=== PATIENT | female | born 1995 | race Two or more races ===

== ENCOUNTER 2024-09-12 08:45 | Inpatient (IN) | payer MEDICAID, OTHER ==
[~2024-09-12] VITALS: Ht 157.5 cm; Wt 49.5 kg
[~2024-09-12 08:45] MED LIST: FAMO20TA10 PO; ZOFR4T PO
--- NOTE | 2024-09-12 09:05 | ED.PDOC ---
GI ASSESSMENT HPI Comments A 29 year old female presents to the ED with a chief complaint of abdominal pain onset 1 week. Patient states she was seen in the ED about 1 week ago, prescribed Famotidine but did not notice an improvement. She has not been able to eat due to symptoms. Denies nausea, vomiting, diarrhea, constipation, chest pain, shortness of breath. No other symptoms or modifying factors present at this time. Chief Complaint: Abdominal Pain Time Seen by MD: 08:51 Primary Care Provider: OUT OF AREA Reviewed Notes: Medications, Allergies Allergies: Coded Allergies: NO KNOWN ALLERGIES (Unverified , 09/03/24) Home Meds Active Scripts Famotidine (PEPCID TABLET) 20 Mg Tb, 1 TAB PO BID PRN for 10 Days, #40 TAB 5 Refills Prov:GABE ASTUDILLO MD 09/03/24 Ondansetron Odt 4MG Tab (ZOFRAN PO) 4 Mg Tb, 4 MG PO Q6HPRN PRN for 10 Days, #40 TAB 0 Refills ODT TAB-DISSOLVE IN MOUTH, THEN SWALLOW Prov:GABE ASTUDILLO MD 09/03/24 Information Source: Patient Mode of Arrival: Ambulatory Timing: Weeks Duration: Since onset Prehospital treatment: None Severity: Moderate Recent Hx of: None Pain Location: Epigastric Associated sign and symptoms: Abdominal Pain Past Medical History PAST MEDICAL HISTORY: Denies Surgical History: Denies all surgeries DELINEATOR History: No Pertinent DELINEATOR History Family History Family History: Reviewed,noncontributory to illness, No family hx of Cancer, No family hx of DM, No family hx of Heart lex, No family hx of HTN, No family hx ofKidney lex, No family hx of Liver lex, No family hx of Lung lex, No family hx of Stroke Social History Smoker: Non-Smoker Alcohol: Denies ETOH Use Drugs: Denies Drug Use Lives In: Home Constitutional: denies: chills, diaphoresis, fatigue, fever, malaise, sweats, weakness, others EENTM: denies: blurred vision, double vision, ear bleeding, ear discharge, ear drainage, ear pain, ear ringing, eye pain, eye redness, hearing loss, mouth pain, mouth swelling, nasal discharge, nose bleeding, nose congestion, nose pain, photophobia, tearing, throat pain, throat swelling, voice changes, others Respiratory: denies: cough, hemoptysis, orthopnea, SOB at rest, shortness of breath, SOB with excertion, stridor, wheezing, others Cardiovascular: denies: chest pain, dizzy spells, diaphoresis, Dyspnea on exertion, edema, irregular heart beat, left arm pain, lightheadedness, palpitations, PND, syncope, others Gastrointestinal: reports: abdominal pain; denies: abdomen distended, blood streaked bowels, constipated, diarrhea, dysphagia, difficulty swallowing, hematemesis, melena, nausea, poor appetite, poor fluid intake, rectal bleeding, rectal pain, vomiting, others Genitourinary: denies: abnormal vagina bleeding, burning, dyspareunia, dysuria, flank pain, frequency, hematuria, incontinence, pain, , vagina discharge, urgency, others Neurological: denies: dizziness, fainting, headache, left sided numbness, left sided weakness, numbness, paresthesia, pre-existing deficit, right sided numbness, right sided weakness, seizure, speech problems, tingling, tremors, weakness, others Musculoskeletal: denies: back pain, gout, joint pain, joint swelling, muscle pain, muscle stiffness, neck pain, others Integumetry: denies: bruises, change in color, change in hair/nails, dryness, laceration, lesions, lumps, rash, wounds, others Allergic/Immunocompromised: denies: Difficulty Healing, Frequent Infections, Hives, Itching, others Hematologic/Lymphatic: denies: anemia, blood clots, easy bleeding, easy bru ising, swollen glands, others Endocrine: denies: excessive hunger, excessive sweating, excessive thirst, e xcessive urination, flushing, intolerance to cold, intolerance to heat, unexplained weight gain, unexplained weight loss, others Psychiatric: denies: anxiety, bipolar disorder, depression, hopeless, panic disorder, schizophrenia, sleepless, suicidal, others All Other Systems: Reviewed and Negative Physical Exam General Appearance: No Apparent Distress, Normal HEENT: Normal ENT Inspection, Pharynx Normal, TMs Normal Neck: Full Range of Motion, Non-Tender, Normal, Normal Inspection Respiratory: Chest Non-Tender, Lungs Clear, No Accessory Muscle Use, No Respiratory Distress, Normal Breath Sounds Cardiovascular: No Edema, No JVD, No Murmur, No Gallop, Normal Peripheral Pulses, Regular Rate/Rhythm Breast Exam: Deferred Gastrointestinal: Epigastric, No Organomegaly, No Pulsatile Mass, Normal Bowel Sounds, Tenderness (epigastric ) Genitalia: Deferred Pelvic: Deferred Rectal: Deferred Extremities: No calf tenderness, Normal capillary refill, Normal inspection, Normal range of motion, Non-tender, No pedal edema Musculoskeletal : Apperance: Normal Neurologic: Alert, veneer stapler II-XII nml as Tested, No Motor Deficits, Normal Affect, Normal Mood, No Sensory Deficits Cerebellar Function: Normal Reflexes: Normal Skin: Dry, Normal Color, Warm Lymphatic: No Adenopathy Was a procedure done? Was a procedure done?: No GI differential Dx Differential Diagnosis: Cholangitis, Cholecystitis, Gastritis/PUD, Gastroenteritis, UTI, Urolithiasis, Dehydration X-Ray, Labs, Meds, VS Vital Signs Date Time Temp Pulse Resp B/P (MAP) Pulse Ox O2 Delivery O2 Flow Rate FiO2 09/12/24 08:55 97.8 86 18 125/95 (105) 98 Lab Test 09/12/24 09:37 09/12/24 08:54 Range/Units White Blood Count 6.5 4.4-10.8 10^3/uL Red Blood Count 4.49 4.0-5.20 10^6/uL Hemoglobin 13.5 12.2-16.2 g/dL Hematocrit 39.9 36.0-46.0 % Mean Corpuscular Volume 88.7 80.0-100.0 fL Mean Corpuscular Hemoglobin 30.0 28.0-32.0 pg Mean Corpuscular Hemoglobin Concent 33.8 32.0-36.0 g/dL Red Cell Distribution Width 12.8 11.8-14.3 % Platelet Count 202 140-450 10^3/uL Mean Platelet Volume 7.8 6.9-10.8 fL Neutrophils (%) (Auto) 73.2 37.0-80.0 % Lymphocytes (%) (Auto) 19.6 10.0-50.0 % Monocytes (%) (Auto) 6.3 0.0-12.0 % Eosinophils (%) (Auto) 0.2 0.0-7.0 % Basophils (%) (Auto) 0.7 0.0-2.0 % Neutrophils # (Auto) 4.7 1.6-8.6 10 ^3/uL Lymphocytes # (Auto) 1.3 0.4-5.4 10 ^3/uL Monocytes # (Auto) 0.4 0-1.3 10 ^3/uL Eosinophils # (Auto) 0 0-0.8 10 ^3/uL Basophils # (Auto) 0 0-0.2 10 ^3/uL Nucleated Red Blood Cells 0.1 % Sodium Level 139 136-145 mmol/L Potassium Level 3.5 3.5-5.1 mmol/L Chloride Level 104 98-107 mmol/L Carbon Dioxide Level 24 20-31 mmol/L Anion Gap 11 5-15 Blood Urea Nitrogen 9 9-23 mg/dL Creatinine 0.62 0.550-1.02 mg/dL Glomerular Filtration Rate Calc 122 >90 mL/min BUN/Creatinine Ratio 14.5 10.0-20.0 Serum Glucose 92 74-106 mg/dL Calcium Level 9.6 8.7-10.4 mg/dL Total Bilirubin 0.6 0.2-1.0 mg/dL Aspartate Amino Transferase (AST) 13 13-40 U/L Alanine Aminotransferase (ALT) 18 7-40 U/L Alkaline Phosphatase 58 46-116 U/L Total Protein 7.2 5.7-8.2 g/dL Albumin 4.6 3.2-4.8 g/dL Lipase 56 H 12-53 U/L Urine Color Colorless Yellow Urine Clarity Clear Clear Urine pH 7.5 5.0-9.0 Urine Specific [place] 1.006 1.001-1.035 Urine Protein Negative Negative Urine Ketones Negative Negative Urine Blood Negative Negative /uL Urine Nitrite Negative Negative Urine Bilirubin Negative Negative Urine Urobilinogen Normal Negative mg/dL Urine Leukocyte Esterase Negative Negative /uL Urine RBC <1 0 - 4 /hpf Urine WBC <1 0 - 5 /hpf Urine Squamous Epithelial Cells Mod <5 /hpf Urine Bacteria None Seen /hpf Urine Glucose Normal Normal mg/dL Urine Test Negative Negative [facility] [id number] [place] [address] Ph: [phone] DIAGNOSTIC IMAGING Diagnostic Imaging Report : [id number] Signed PATIENT: CHALO GUTIÉRREZ ACCT: [id number] UNIT: [id number] : 1995 LOC: ER ROOM / BED: / AGE / SEX: 29 / F ADM STATUS: REG ER SERVICE 0900 ORDERING PHYSICIAN: KERWIN BARRON MD PROCEDURE(s): GBUS - GALLBLADDER REASON: ruq pain ORDER NUMBER(s): [id number], ACCESSION NUMBER(s): [id number] US GALLBLADDER HISTORY: ruq pain COMPARISON: None TECHNIQUE: Transverse and longitudinal grayscale and color sonographic images were obtained of the abdomen. FINDINGS: Liver: - Size: 14.2 cm - Echogenicity: Normal - Surface Contour: Smooth - Liver Lesion(s): None - Portal Vein: Hepatofugal. - Bile Ducts: Normal. The common bile duct measures 4.4 mm. Gallbladder: Gallstone at the neck of gallbladder with wall thickening and pericholecystic fluid. The sonographic Fowler sign is positive. Pancreas: Portions not obscured by bowel gas are normal. Kidneys: - Right kidney size: 9.7 cm. There is no hydronephrosis, renal calculi, or mass lesion. Aorta and Inferior Vena Cava: The visualized portions of the abdominal aorta and intrahepatic vena cava are normal. Other: None IMPRESSION: Cholelithiasis with gallstone at the neck of gallbladder with wall thickening and pericholecystic fluid can be seen with cholecystitis. ATED BY: SANDER CRAMER MD DICTATED DATE/TIME: 09/12/24945 SIGNED BY: SANDER CRAMER MD SIGNED DATE/TIME: 09/12/24945 CC: Time of 1ST Reevaluation: 08:21 Reevaluation 1ST: Unchanged Patient Education/Counseling: Diagnosis, Treatment, Prognosis Family Education/Counseling: No Family Present Departure 1 Departure Time of Disposition: 10:51 (Patient presented with abdominal pain that was concerning for possible appendicits, gastritis, cholecystitis, colitis, gastroenteritis, sbo, or orther possible surgical emergency. Data: 1. I ordered and reviewed the result of at least 3 labs including a CBC, BMP, and Urinalysis. 2. I independently interpreted the following tests: Right upper quadrant ultrasound is concerning for acute cholecystitis.Risk:This patient has a high risk of morbidity due to further diagnostic testing or treatment and may suffer from an acute abdominal process disorder. Workup reveals concern for acute ch olecystitis and patient should be admitted for further workup. and possible expert consultation. ) Impression: Primary Impression: Acute cholecystitis Additional Impressions: Right upper quadrant pain Projectile vomiting with nausea Disposition: ADMITTED INPATIENT Admit to: Med Surg Condition: Serious Critical Care Note Critical Care Time?: Yes Critical care comment: Intractable abdominal pain Authorized and Performed by: Kerwin Barron MD Total critical care time: Approximately 39 minutes Due to a high probability of clinically significant, life threatening deterioration, the patient required my highest level of preparedness to intervene emergently and I personally spent this critical care time directly and personally managing the patient. This critical care time included obtaining a history; examining the patient; pulse oximetry; ordering and review of studies; arranging urgent treatment with development of a management plan; evaluation of patient's response to treatment; frequent reassessment; and, discussions with other providers. This critical care time was performed to assess and manage the high probability of imminent, life-threatening deterioration that could result in multi-organ failure. It was exclusive of separately billable procedures and treating other patients and teaching time. Please see my other sections and the rest of the note for further information on patient assessment and treatment. Stability Stability form required: No I personally scribed for KERWIN BARRON MD ([email or web address]) on 09/12/24 at 09:05. E lectronically submitted by Abbey Oreilly ([email or web address]). I personally scribed for KERWIN BARRON MD ([email or web address]) on 09/12/24 at 09:59. Elec tronically submitted by Abbey Oreilly ([email or web address]). KERWIN BARRON MD Sep 12, 2024 09:05
[2024-09-12 09:44] LABS: Basophils # (auto) 0 10 ^3/uL (0-0.2); Basophils % (auto) 0.7 % (0.0-2.0); Eosinophils # (auto) 0 10 ^3/uL (0-0.8); Eosinophils % (auto) 0.2 % (0.0-7.0); Hematocrit 39.9 % (36.0-46.0); Hemoglobin 13.5 g/dL (12.2-16.2); Lymphocytes # (auto) 1.3 10 ^3/uL (0.4-5.4); Lymphocytes % (auto) 19.6 % (10.0-50.0); Mean Corpuscular Hgb Conc. 33.8 g/dL (32.0-36.0); Mean Corpuscular Volume 88.7 fL (80.0-100.0); Monocytes # (auto) 0.4 10 ^3/uL (0-1.3); Monocytes % (auto) 6.3 % (0.0-12.0); Neutrophils # (auto) 4.7 10 ^3/uL (1.6-8.6); Neutrophils % (auto) 73.2 % (37.0-80.0); Nucleated Red Blood Cells % 0.1 %; Platelet Count (auto) 202 10^3/uL (140-450); Red Blood Cells 4.49 10^6/uL (4.0-5.20); Red Cell Distribution Width 12.8 % (11.8-14.3); White Blood Cell 6.5 10^3/uL (4.4-10.8)
--- NOTE | 2024-09-12 09:48 | DVH ---
US GALLBLADDER HISTORY: ruq pain COMPARISON: None TECHNIQUE: Transverse and longitudinal grayscale and color sonographic images were obtained of the ab domen. FINDINGS: Liver: - Size: 14.2 cm - Echogenicity: Normal - Surface Contour: Smooth - Liver Lesion(s): None - Portal Vein: Hepatofugal. - Bile Ducts: Normal. The common bile duct measures 4.4 mm. Gallbladder: Gallstone at the neck of gallbladder with wall thickening and pericholecystic fluid. The sonographic Fowler sign is positive. Pancreas: Portions not obscured by bowel gas are normal. Kidneys: - Right kidney size: 9.7 cm. There is no hydronephrosis, renal calculi, or mass lesion. Aorta and Inferior Vena Cava: The visualized portions of the abdominal aorta and intrahepatic vena ca va are normal. Other: None IMPRESSION: Cholelithiasis with gallstone at the neck of gallbladder with wall thickening and pericholecystic flu id can be seen with cholecystitis.
[2024-09-12 10:00] LABS: Alanine Aminotransferase 18 U/L (7-40); Albumin 4.6 g/dL (3.2-4.8); Alkaline Phosphatase 58 U/L (46-116); Anion Gap 11 (5-15); BUN/Creatinine Ratio 14.5 (10.0-20.0); Bilirubin, Total 0.6 mg/dL (0.2-1.0); Calcium 9.6 mg/dL (8.7-10.4); Carbon Dioxide 24 mmol/L (20-31); Chloride 104 mmol/L (98-107); Glucose 92 mg/dL (74-106); Sodium 139 mmol/L (136-145); Total Protein 7.2 g/dL (5.7-8.2)
[2024-09-12 10:03] LABS: Aspartate Aminotransferase 13 U/L (13-40); Blood Urea Nitrogen 9 mg/dL (9-23); Lipase 56 U/L (12-53); Potassium 3.5 mmol/L (3.5-5.1)
[2024-09-12 10:38] LABS: Urine Blood Negative /uL (Negative); Urine Clarity Clear (Clear); Urine Color Colorless (Yellow); Urine Protein, UAD Negative (Negative); Urine Specific Gravity 1.006 (1.001-1.035); Urine Urobilinogen Normal (Negative); Urine WBC <1 /hpf (0 - 5); Urine pH 7.5 (5.0-9.0)
[2024-09-12] MEDS: SODIUM CHLORIDE 0.9% 1,000 ML IV ONE (11:13)
[2024-09-12] MEDS: MORPHINE SULFATE 4 MG/ML SYR/VIAL IV ONE (11:26)
[2024-09-12] MEDS: ONDANSETRON HCL 4 MG/2 ML VIAL IV ONE (11:27)
[2024-09-12] MEDS: metroNIDAZOLE 500MG/100ML 100 ML IV ONE (11:27)
[2024-09-12] MEDS: ceFAZolin 2 GM/D5W50ml 50 ML IV ONE (12:49)
[2024-09-12] MEDS ORDERED: MORPHINE SULFATE INJ 2 MG/ml SYRG IV PRN (13:00)
[2024-09-12] MEDS ORDERED: TEMAZEPAM 15 MG CAP PO PRN (13:00)
[2024-09-12] MEDS ORDERED: ACETAMINOPHEN 325 MG TAB PO PRN (13:00)
--- NOTE | 2024-09-12 13:20 | DVHHP2 ---
History of Present Illness Reason for Visit: Abdominal pain History of Present Illness 29-year-old female comes into the ED for evaluation of acute abdominal pain patient with a no stated other past medical history no other stated past surgical history has been having abdominal pain for the past week stated that she has tried several [id number] medications have not been helpful and does note that eating sometimes is affected symptoms patient was evaluated in the ED had a right upper quadrant ultrasound which did show that the patient had gallstones and acute cholecystitis surgery was evaluated and required for consultation in the ED patient recommended for admission further evaluation and likely surgical treatment Review of Systems Constitutional: Yes: Fever, Weakness; No: Chills, Sweats, Malaise, Other Eyes: No: Pain, Vision change, Conjunctivae inflammation, Eyelid inflammation, Other, Redness ENT: No: Ear pain, Ear discharge, Nose pain, Nose discharge, Nose congestion, Mouth pain, Mouth swelling, Throat pain, Throat swelling, Other Respiratory: No: Cough, Dry, Shortness of breath, SOB with excertion, Wheezing, Hemoptysis, Pleuritic Pain, Sputum, Wheezing, Other Cardiovascular: No: Chest Pain, Palpitations, Orthopnea, Paroxysmal Noc. Dyspnea, Edema, Lt Headedness, Other Gastrointestinal: Abdominal Pain; No: Nausea, Vomiting, Diarrhea, Constipation, Melena, Hematochezia, Other Genitourinary: No Dysuria, No Frequency, No Incontinence, No Hematuria, No Retention, No Other Musculoskeletal: No: other, neck pain, shoulder pain, arm pain, back pain, hand pain, leg pain, foot pain Skin: No: Rash, Lesions, Jaundice, Bruising, Other Neurological: No: Weakness, Numbness, Incoordination, Change in speech, Confusion, Seizures, Other Allergies: Coded Allergies: NO KNOWN ALLERGIES (Unverified , 09/03/24) Medications Current Medications Medications Dose Ordered Sig/Deshawn Route Start Time Stop Time Status Last Admin Dose Admin Ceftriaxone Sodium 50 ml @ 100 mls/hr DAILY IV 09/13/24 10:00 UNV Metronidazole 100 ml @ 100 mls/hr Q8HR IV 09/12/24 14:00 UNV Sodium Chloride 1,000 ml @ 60 mls/hr [id number] IV 09/12/24 13:00 UNV Lorazepam 0.5 mg Q6HP PRN PO 09/12/24 13:00 UNV Al Hydrox/Mg Hydrox/Simethicone 30 ml Q6HP PRN PO 09/12/24 13:00 UNV Docusate Sodium 100 mg BIDPRN PRN PO 09/12/24 13:00 UNV Acetaminophen 650 mg Q6HP PRN PO 09/12/24 13:00 UNV Temazepam 15 mg QHSP PRN PO 09/12/24 13:00 UNV Acetaminophen/ Hydrocodone Bitart 1 tab Q4HP PRN PO 09/12/24 13:00 UNV Ondansetron HCl 4 mg Q4HP PRN IV 09/12/24 13:00 UNV Morphine Sulfate 2 mg Q4HPRN PRN IV 09/12/24 13:00 UNV Morphine Sulfate 2 mg Q30M PRN IV 09/12/24 13:00 UNV Exam Vital Signs Vital Signs Date Time Temp Pulse Resp B/P (MAP) Pulse Ox O2 Delivery O2 Flow Rate FiO2 09/12/24 13:10 98.2 69 20 111/74 (86) 98 98.2 09/12/24 11:07 Room Air General Appearance: Alert, Oriented X3, moderate distress HEENT: Atraumatic, PERRLA Respiratory: Clear to auscultation, Normal air movement Cardiovascular: Regular rate, Normal S1, Normal S2 Abdominal: Normal bowel sounds, Soft, No tenderness Extremities: No clubbing, No cyanosis, No edema Skin: No rashes, No breakdown Neuro: Normal gait, Normal speech Psych/Mental Status: Mood NL Labs/Xrays Labs Test 09/12/24 09:37 09/12/24 08:54 Range/Units White Blood Count 6.5 4.4-10.8 10^3/uL Red Blood Count 4.49 4.0-5.20 10^6/uL Hemoglobin 13.5 12.2-16.2 g/dL Hematocrit 39.9 36.0-46.0 % Mean Corpuscular Volume 88.7 80.0-100.0 fL Mean Corpuscular Hemoglobin 30.0 28.0-32.0 pg Mean Corpuscular Hemoglobin Concent 33.8 32.0-36.0 g/dL Red Cell Distribution Width 12.8 11.8-14.3 % Platelet Count 202 140-450 10^3/uL Mean Platelet Volume 7.8 6.9-10.8 fL Neutrophils (%) (Auto) 73.2 37.0-80.0 % Lymphocytes (%) (Auto) 19.6 10.0-50.0 % Monocytes (%) (Auto) 6.3 0.0-12.0 % Eosinophils (%) (Auto) 0.2 0.0-7.0 % Basophils (%) (Auto) 0.7 0.0-2.0 % Neutrophils # (Auto) 4.7 1.6-8.6 10 ^3/uL Lymphocytes # (Auto) 1.3 0.4-5.4 10 ^3/uL Monocytes # (Auto) 0.4 0-1.3 10 ^3/uL Eosinophils # (Auto) 0 0-0.8 10 ^3/uL Basophils # (Auto) 0 0-0.2 10 ^3/uL Nucleated Red Blood Cells 0.1 % Sodium Level 139 136-145 mmol/L Potassium Level 3.5 3.5-5.1 mmol/L Chloride Level 104 98-107 mmol/L Carbon Dioxide Level 24 20-31 mmol/L Anion Gap 11 5-15 Blood Urea Nitrogen 9 9-23 mg/dL Creatinine 0.62 0.550-1.02 mg/dL Glomerular Filtration Rate Calc 122 >90 mL/min BUN/Creatinine Ratio 14.5 10.0-20.0 Serum Glucose 92 74-106 mg/dL Calcium Level 9.6 8.7-10.4 mg/dL Total Bilirubin 0.6 0.2-1.0 mg/dL Aspartate Amino Transferase (AST) 13 13-40 U/L Alanine Aminotransferase (ALT) 18 7-40 U/L Alkaline Phosphatase 58 46-116 U/L Total Protein 7.2 5.7-8.2 g/dL Albumin 4.6 3.2-4.8 g/dL Lipase 56 H 12-53 U/L Urine Color Colorless Yellow Urine Clarity Clear Clear Urine pH 7.5 5.0-9.0 Urine Specific [place] 1.006 1.001-1.035 Urine Protein Negative Negative Urine Ketones Negative Negative Urine Blood Negative Negative /uL Urine Nitrite Negative Negative Urine Bilirubin Negative Negative Urine Urobilinogen Normal Negative mg/dL Urine Leukocyte Esterase Negative Negative /uL Urine RBC <1 0 - 4 /hpf Urine WBC <1 0 - 5 /hpf Urine Squamous Epithelial Cells Mod <5 /hpf Urine Bacteria None Seen /hpf Urine Glucose Normal Normal mg/dL Urine Test Negative Negative Assessment/Plan Assessment/Plan Admit to [facility] Acute cholecystitis Ultrasound completed in the ED Patient's labs no acute abnormal findings For coverage and making sure that the patient does have signs of sepsis or rupture Patient was treated with antibiotics ceftriaxone daily Metronidazole t.i.d. IV hydration p.r.n. pain medication Plan discussed with: Patient My Orders Orders - BREANNE HILL MD Procedure Category Date Status Time Ceftriaxone 1gm/50ml PHA 09/13/24 Logged D5w (Rocephin) 10:00 Metronidazole PHA 09/12/24 Logged 500mg/100ml (Flagyl 14:00 Admit ADMIT 09/12/24 Transmitted 12:58 Code Status CODE 09/12/24 Transmitted 12:58 Vital Signs [facility] 09/12/24 In Process 12:58 Review Orders With [facility] 09/12/24 In Process Adm. 12:58 Npo (Nothing By DIET 09/12/24 Transmitted Mouth) Diet Lunch Sodium Chloride 0.9% PHA 09/12/24 Logged 13:00 Lorazepam Tablet PHA 09/12/24 Logged (Ativan Tablet) 13:00 Alum & Mag PHA 09/12/24 Logged Hydrox-Simethicone 13:00 Docusate Sodium PHA 09/12/24 Logged Capsule (Colace 13:00 Acetaminophen Tablet PHA 09/12/24 Logged (Tylenol Tablet) 13:00 Temazepam (Restoril) PHA 09/12/24 Logged 13:00 Notify Of Changes [facility] 09/12/24 In Process From Base 12:58 Advance Directive [facility] 09/12/24 In Process 12:58 Basic Metabolic Panel LAB 09/13/24 Verified 04:00 Complete Blood Count LAB 09/13/24 Verified 04:00 Patient Condition ORDERS 09/12/24 Transmitted 12:58 Allergies [facility] 09/12/24 In Process 12:58 Hydrocodone-Acet PHA 09/12/24 Logged 5/325mg Tab ([place] 13:00 Ondansetron Hcl PHA 09/12/24 Logged (Zofran) 13:00 Morphine Sulfate PHA 09/12/24 Logged Injection 13:00 Morphine Sulfate PHA 09/12/24 Logged Injection 13:00 Vinnie Nguyen Of Changes [facility] 09/12/24 In Process From Base 12:58 Oxygen By Nasal RT 09/12/24 Transmitted Cannula 12:58 Problem List: (1) Acute epigastric pain (2) Acute cholecystitis (3) Right upper quadrant pain (4) Projectile vomiting with nausea Date of Service: Sep 12, 2024 Billing Provider: BREANNE HILL MD Common Visit Codes: [id number] INP/OBS CARE (HIGH) BREANNE HILL MD Sep 12, 2024 13:20
[2024-09-12] MEDS: SODIUM CHLORIDE 0.9% 1,000 ML IV SCH (13:42)
[2024-09-12] MEDS: HYDROcodone-ACET 5/325MG TAB PO PRN (13:49)
[2024-09-12] MEDS: LORazepam 0.5 MG TAB PO PRN (13:49)
--- NOTE | 2024-09-12 14:47 | DVHINCON2 ---
Date of service: Sep 12, 2024 History of Present Illness 29-year-old female complaining of one-week history of right upper quadrant epigastric abdominal pain without fevers, chills, nausea or vomiting. Past Medical History None Past Surgical History None Family History Noncontributory Social History No alcohol, tobacco, IV drug use Allergies: Coded Allergies: NO KNOWN ALLERGIES (Unverified , 09/03/24) Home Meds Active Scripts Famotidine (PEPCID TABLET) 20 Mg Tb, 1 TAB PO BID PRN for 10 Days, #40 TAB 5 Refills Prov:GABE ASTUDILLO MD 09/03/24 Ondansetron Odt 4MG Tab (ZOFRAN PO) 4 Mg Tb, 4 MG PO Q6HPRN PRN for 10 Days, #40 TAB 0 Refills ODT TAB-DISSOLVE IN MOUTH, THEN SWALLOW Prov:GABE ASTUDILLO MD 09/03/24 Current Medications Current Medications Medications (Trade) Dose Ordered Sig/Deshawn Route PRN Reason Start Time Stop Time Status Last Admin Ceftriaxone Sodium 50 ml @ 100 mls/hr DAILY IV 09/13/24 10:00 Metronidazole 100 ml @ 100 mls/hr Q8HR IV 09/12/24 14:00 Sodium Chloride 1,000 ml @ 60 mls/hr [id number] IV 09/12/24 13:00 09/12/24 13:42 Lorazepam (Ativan Tablet) 0.5 mg Q6HP PRN PO ANXIETY 09/12/24 13:00 09/12/24 13:49 Al Hydrox/Mg Hydrox/Simethicone (Maalox Plus) 30 ml Q6HP PRN PO FOR STOMACH DISTRESS 09/12/24 13:00 Docusate Sodium (Colace Capsule) 100 mg BIDPRN PRN PO FOR CONSTIPATION 09/12/24 13:00 Acetaminophen (Tylenol Tablet) 650 mg Q6HP PRN PO PAIN SCALE 1-3 OR TEMP>100.4 09/12/24 13:00 Temazepam (Restoril) 15 mg QHSP PRN PO FOR INSOMNIA 09/12/24 13:00 Acetaminophen/ Hydrocodone Bitart ([place] 5/325MG Tab) 1 tab Q4HP PRN PO MODERATE PAIN (4-6 PAIN SCALE) 09/12/24 13:00 09/12/24 13:49 Ondansetron HCl (Zofran) 4 mg Q4HP PRN IV NAUSEA / VOMITING 09/12/24 13:00 Morphine Sulfate 2 mg Q4HPRN PRN IV SEVERE PAIN (7-10 PAIN SCALE) 09/12/24 13:00 Morphine Sulfate 2 mg Q30M PRN IV FOR CHEST PAIN 09/12/24 13:00 Vital Signs Vital Signs Date Time Temp Pulse Resp B/P (MAP) Pulse Ox O2 Delivery O2 Flow Rate FiO2 09/12/24 13:10 98.2 69 20 111/74 (86) 98 98.2 09/12/24 11:07 Room Air Physical Exam GEN: Age-appropriate female in no acute distress. Alert. HEENT: Normocephalic atraumatic. Moist mucous membranes. Anicteric sclerae. CV: RRR Respiratory: CTAB ABD: Right upper quadrant epigastric tenderness to palpation with localized guarding. Nondistended. Abdominal ultrasound: Gallstone at the neck of the gallbladder with wall thic kening and pericholecystic fluid. Common bile duct at 4.4 mm. Labs/Diagnostic Data Labs Test 09/12/24 09:37 09/12/24 08:54 Range/Units White Blood Count 6.5 4.4-10.8 10^3/uL Red Blood Count 4.49 4.0-5.20 10^6/uL Hemoglobin 13.5 12.2-16.2 g/dL Hematocrit 39.9 36.0-46.0 % Mean Corpuscular Volume 88.7 80.0-100.0 fL Mean Corpuscular Hemoglobin 30.0 28.0-32.0 pg Mean Corpuscular Hemoglobin Concent 33.8 32.0-36.0 g/dL Red Cell Distribution Width 12.8 11.8-14.3 % Platelet Count 202 140-450 10^3/uL Mean Platelet Volume 7.8 6.9-10.8 fL Neutrophils (%) (Auto) 73.2 37.0-80.0 % Lymphocytes (%) (Auto) 19.6 10.0-50.0 % Monocytes (%) (Auto) 6.3 0.0-12.0 % Eosinophils (%) (Auto) 0.2 0.0-7.0 % Basophils (%) (Auto) 0.7 0.0-2.0 % Neutrophils # (Auto) 4.7 1.6-8.6 10 ^3/uL Lymphocytes # (Auto) 1.3 0.4-5.4 10 ^3/uL Monocytes # (Auto) 0.4 0-1.3 10 ^3/uL Eosinophils # (Auto) 0 0-0.8 10 ^3/uL Basophils # (Auto) 0 0-0.2 10 ^3/uL Nucleated Red Blood Cells 0.1 % Sodium Level 139 136-145 mmol/L Potassium Level 3.5 3.5-5.1 mmol/L Chloride Level 104 98-107 mmol/L Carbon Dioxide Level 24 20-31 mmol/L Anion Gap 11 5-15 Blood Urea Nitrogen 9 9-23 mg/dL Creatinine 0.62 0.550-1.02 mg/dL Glomerular Filtration Rate Calc 122 >90 mL/min BUN/Creatinine Ratio 14.5 10.0-20.0 Serum Glucose 92 74-106 mg/dL Calcium Level 9.6 8.7-10.4 mg/dL Total Bilirubin 0.6 0.2-1.0 mg/dL Aspartate Amino Transferase (AST) 13 13-40 U/L Alanine Aminotransferase (ALT) 18 7-40 U/L Alkaline Phosphatase 58 46-116 U/L Total Protein 7.2 5.7-8.2 g/dL Albumin 4.6 3.2-4.8 g/dL Lipase 56 H 12-53 U/L Urine Color Colorless Yellow Urine Clarity Clear Clear Urine pH 7.5 5.0-9.0 Urine Specific [place] 1.006 1.001-1.035 Urine Protein Negative Negative Urine Ketones Negative Negative Urine Blood Negative Negative /uL Urine Nitrite Negative Negative Urine Bilirubin Negative Negative Urine Urobilinogen Normal Negative mg/dL Urine Leukocyte Esterase Negative Negative /uL Urine RBC <1 0 - 4 /hpf Urine WBC <1 0 - 5 /hpf Urine Squamous Epithelial Cells Mod <5 /hpf Urine Bacteria None Seen /hpf Urine Glucose Normal Normal mg/dL Urine Test Negative Negative Assessment 1. Acute cholecystitis Plan/Recommendation 1. Laparoscopic cholecystectomy possible open surgery Informed consent: The surgery and its risks including but not limited to infection, bleeding requiring possible blood transfusion with the risk of hepatitis or HIV infection, possible open surgery, possible cystic duct leak or retained common bile duct stone requiring further intervention such as an ERCP were explained to the patient. All questions were answered to her satisfaction. She expressed verbal understanding and wished to proceed with the surgery. Plan discussed with: Patient CUCA PINK MD Sep 12, 2024 14:47
[2024-09-12] MEDS: cefTRIAXone 1GM/50ML D5W 50 ML IV ONE (15:20)
[2024-09-12] MEDS: metroNIDAZOLE 500MG/100ML 100 ML IV SCH (17:54)
[2024-09-12 19:02] VITALS: BP 94/63; PULSE 70; RESP 17; TEMP 98.7; O2SAT 97
[2024-09-12 20:00] VITALS: RESP 18
[2024-09-12 21:00] VITALS: BP 106/68; PULSE 68; RESP 17; TEMP 98.3; O2SAT 97
[2024-09-13] VITALS (7 sets, daily range): BP systolic 101–121; BP diastolic 55–81; PULSE 62–104; RESP 16–18; TEMP 97.4–98.2; O2SAT 94–99
[2024-09-13] MEDS: ONDANSETRON HCL 4 MG/2 ML VIAL IV PRN (04:56)
[2024-09-13 05:11] LABS: Basophils # (auto) 0 10 ^3/uL (0-0.2); Basophils % (auto) 0.6 % (0.0-2.0); Eosinophils # (auto) 0 10 ^3/uL (0-0.8); Eosinophils % (auto) 0.2 % (0.0-7.0); Hematocrit 35.8 % (36.0-46.0); Hemoglobin 12.2 g/dL (12.2-16.2); Lymphocytes # (auto) 1.1 10 ^3/uL (0.4-5.4); Lymphocytes % (auto) 16.4 % (10.0-50.0); Mean Corpuscular Hemoglobin 30.4 pg (28.0-32.0); Mean Corpuscular Hgb Conc. 34.2 g/dL (32.0-36.0); Mean Corpuscular Volume 88.9 fL (80.0-100.0); Monocytes # (auto) 0.6 10 ^3/uL (0-1.3); Monocytes % (auto) 8.7 % (0.0-12.0); Neutrophils % (auto) 74.1 % (37.0-80.0); Nucleated Red Blood Cells % 0.1 %; Platelet Count (auto) 165 10^3/uL (140-450); Red Blood Cells 4.02 10^6/uL (4.0-5.20); Red Cell Distribution Width 12.8 % (11.8-14.3); White Blood Cell 6.8 10^3/uL (4.4-10.8)
[2024-09-13 05:30] LABS: Alanine Aminotransferase 15 U/L (7-40); Alkaline Phosphatase 51 U/L (46-116); Anion Gap 9 (5-15); Aspartate Aminotransferase 13 U/L (13-40); BUN/Creatinine Ratio 8.8 (10.0-20.0); Calcium 9.1 mg/dL (8.7-10.4); Carbon Dioxide 25 mmol/L (20-31); Chloride 107 mmol/L (98-107); INR 1.13 (0.9-1.15); Partial Thromboplastin Time 28.3 SEC (24.5-34.5); Potassium 3.7 mmol/L (3.5-5.1); Prothrombin Time 11.9 sec (9.3-11.8); Sodium 141 mmol/L (136-145)
[2024-09-13 05:31] LABS: Bilirubin, Total 0.9 mg/dL (0.2-1.0); Total Protein 6.3 g/dL (5.7-8.2)
[2024-09-13 05:45] LABS: Blood Urea Nitrogen 6 mg/dL (9-23); Glucose 68 mg/dL (74-106); Lipase 56 U/L (12-53)
[2024-09-13] MEDS: MORPHINE SULFATE INJ 2 MG/ml SYRG IV PRN (06:14)
[2024-09-13] MEDS: cefTRIAXone 1GM/50ML D5W 50 ML IV SCH (09:30)
[2024-09-13] MEDS ORDERED: fentaNYL CITRATE 100 MCG/2 ML VL ONE (11:31)
[2024-09-13] MEDS ORDERED: MIDAZOLAM HCL 2MG/2ML 2ml VIAL (1mg/ml) ONE (11:31)
[2024-09-13] MEDS ORDERED: PROPOFOL 10 MG/ML 20 ML IV ONE (11:31)
[2024-09-13] MEDS ORDERED: LIDOCAINE 1% INJ PF 5ML AMP ONE (11:45)
[2024-09-13] MEDS ORDERED: ROCURONIUM 10MG/ML 10ML VIAL IV ONE (11:45)
[2024-09-13] MEDS ORDERED: DexAMETHasone SOD PHOS 10MG/1ML VIAL INJ ONE (11:45)
[2024-09-13] MEDS ORDERED: ONDANSETRON HCL 4 MG/2 ML VIAL ONE (11:45)
[2024-09-13] MEDS ORDERED: HYDROmorphone HCL 2 MG/ML VL/or syr ONE (12:12)
[2024-09-13] MEDS: LIDOCAINE W/ EPINEPHRINE 1% 20ML VIAL ONE (12:44)
[2024-09-13] MEDS ORDERED: fentaNYL CITRATE 100 MCG/2 ML VL IV PRN (13:15)
--- NOTE | 2024-09-13 13:17 | DVHOP2 ---
Operative Report - 2 Report Details Date: 09/13/24 Preop Diagnosis: Acute cholecystitis Postop Diagnosis: Same Surgeon: Cuca Araujo MD Electromechanical Equipment Assembler: None Anesthesiologist: Kishan Velasquez CRNA Anesthesia: General, Local Consent: The surgery and its risks including but not limited to infection, bleeding requiring possible blood transfusion with the risk of hepatitis or HIV infection, open surgery, possible cystic duct leak or retained common bile duct stone requiring further intervention such as an ERCP, possible perioperative [place] or stroke were explained to the patient. All questions were answered to her satisfaction. She expressed verbal understanding and wished to proceed with the surgery. Complications: None Estimated Blood Loss: 50 mL Fluids: 500 mL Name of Procedure Performed Laparoscopic cholecystectomy Procedure Details Procedure Details: After induction of general anesthesia, patient's abdomen was prepped and draped in standard surgical fashion. A small infraumbilical incision was made and this incision was taken through the abdominal wall down to the fascia which was opened sharply. Peritoneum was then bluntly divided gaining access to the intra-abdominal cavity. Interrupted 0 Vicryl sutures were placed through the fascial incision and using an open technique, Adelso trocar was introduced and secured using the Vicryl sutures. Abdomen was insufflated to 15 mmHg and camera was inserted. Visual examination of the intestine under the fascial incision appeared normal without injury. Under direct visualization, a 5 mm bladeless trocar was placed in the subxiphoid region and two additional 5 mm bladeless trocars were placed in the right upper quadrant all under direct visualization. Examination of the right upper quadrant revealed a very edematous gallbladder. There was also moderate amount of adhesion bands involving the liver to the peritoneum. These were all taken down freeing up the right lobe of the liver. Gallbladder was then grasped and retracted in a cephalad direction as the infundibulum was retracted laterally. Careful blunt dissection was performed to identify the cystic duct. This was clipped and divided using Endoclips without complication. Cystic artery was located just next to the cystic duct and this was also clipped and divided using Endoclips without complication. Gallbladder was then removed from the liver bed using electrocautery and there was no bile or stone spillage during the maneuver. Gallbladder was then removed from the abdominal cavity using an endo pouch bag and sent off the surgical field. Abdomen was then re-insufflated and right upper quadrant was then well irrigated until fluid was clear. Trocars were then removed under direct visualization as the abdomen was deflated. Additional interrupted 0 Vicryl sutures were placed through the infraumbilical fascial incision and all sutures were tied down closing off the infraumbilical fascia. Surgical sites were irrigated injected with 20 mL of 1% lidocaine with epinephrine. Skin incisions were closed using 4-0 Monocryl sutures in subcuticular fashion. Surgical site was cleaned and dried dressings were applied. Sponge, needle, instrument count at the end of the case were reported to be correct by the nursing staff. Patient tolerated procedure well and was awakened, extubated and transferred to recovery in stable condition. Specimen: gallbladder Condition Stable Disposition Still a Patient CUCA ARAUJO MD Sep 13, 2024 13:17
[2024-09-13] MEDS: HYDROmorphone HCL 2 MG/ML VL/or syr IV PRN (13:28)
[2024-09-13] MEDS: ONDANSETRON HCL 4 MG/2 ML VIAL IV ONE (13:43)
[2024-09-13] MEDS: METOCLOPRAMIDE HCL 5MG/ml INJ 2ml VIAL ONE (13:54)
[2024-09-13] MEDS: METOCLOPRAMIDE HCL 5MG/ml INJ 2ml VIAL IV ONE (13:54)
--- NOTE | 2024-09-13 15:07 | DVHPN2 ---
Reviewed: Care Plan, H&P, Labs, Medications, Previous Orders, Radiology Changes from previous H/P or p: No Changes Eyes: No Pain, No Vision change, No Conjunctivae inflammation, No Eyelid inflammation, No Other, No Redness ENT: No Ear pain, No Ear discharge, No Nose pain, No Nose discharge, No Nose congestion, No Mouth pain, No Mouth swelling, No Throat pain, No Throat swelling, No Other Cardiovascular: No Chest Pain, No Palpitations, No Orthopnea, No Paroxysmal Noc. Dyspnea, No Edema, No Lt Headedness, No Other Respiratory: No Cough, No Dry, No Shortness of breath, No SOB with excertion, No Wheezing, No Hemoptysis, No Pleuritic Pain, No Sputum, No Other Gastrointestinal: No Nausea, No Vomiting; Abdominal Pain; No Diarrhea, No Constipation, No Melena, No Hematochezia, No Other Genitourinary: No Dysuria, No Frequency, No Incontinence, No Hematuria, No Retention, No Other Musculoskeletal: No other, No neck pain, No shoulder pain, No arm pain, No back pain, No hand pain, No leg pain, No foot pain Skin: No Rash, No Lesions, No Jaundice, No Bruising, No Other Objective Vitals Vital Signs Date Time Temp Pulse Resp B/P (MAP) Pulse Ox O2 Delivery O2 Flow Rate FiO2 09/13/24 09:00 97.4 76 18 101/67 (78) 95 97.4 09/13/24 08:00 Room Air* 0 21 Intake/Output Intake and Output 09/13/24 07:00 Intake Total 300 ml Output Total 0 ml Balance 300 ml Intake Oral 0 ml IV Total 300 ml Output Urine Total 0 ml Medications Current Medications Medications Dose Ordered Sig/Deshawn Route Start Time Stop Time Status Last Admin Dose Admin Ceftriaxone Sodium 50 ml @ 100 mls/hr DAILY IV 09/13/24 10:00 09/13/24 09:30 100 MLS/HR Metronidazole 100 ml @ 100 mls/hr Q8HR IV 09/12/24 14:00 09/13/24 05:10 100 MLS/HR Sodium Chloride 1,000 ml @ 60 mls/hr [id number] IV 09/12/24 13:00 09/12/24 13:42 60 MLS/HR Lorazepam 0.5 mg Q6HP PRN PO 09/12/24 13:00 09/12/24 13:49 0.5 MG Al Hydrox/Mg Hydrox/Simethicone 30 ml Q6HP PRN PO 09/12/24 13:00 Docusate Sodium 100 mg BIDPRN PRN PO 09/12/24 13:00 Acetaminophen 650 mg Q6HP PRN PO 09/12/24 13:00 Temazepam 15 mg QHSP PRN PO 09/12/24 13:00 Acetaminophen/ Hydrocodone Bitart 1 tab Q4HP PRN PO 09/12/24 13:00 09/13/24 02:35 1 TAB Ondansetron HCl 4 mg Q4HP PRN IV 09/12/24 13:00 09/13/24 04:56 4 MG Morphine Sulfate 2 mg Q4HPRN PRN IV 09/12/24 13:00 09/13/24 06:14 2 MG Morphine Sulfate 2 mg Q30M PRN IV 09/12/24 13:00 Laboratory Results Laboratory Tests 09/13/24 04:51 Chemistry Test 09/13/24 04:51 Albumin 4.0 g/dL (3.2-4.8) Calcium Level 9.1 mg/dL (8.7-10.4) Total Protein 6.3 g/dL (5.7-8.2) Coagulation Test 09/13/24 04:51 Prothrombin Time 11.9 sec (9.3-11.8) H Prothrombin Time INR 1.13 (0.9-1.15) Activated Partial Thromboplast Time 28.3 SEC (24.5-34.5) Lipid panel Test 09/13/24 04:51 Lipase 56 U/L (12-53) H LFT Test 09/13/24 04:51 Alanine Aminotransferase (ALT) 15 U/L (7-40) Alkaline Phosphatase 51 U/L (46-116) Aspartate Amino Transferase (AST) 13 U/L (13-40) Total Bilirubin 0.9 mg/dL (0.2-1.0) Urinalysis Test 09/12/24 08:54 Urine Color Colorless (Yellow) Urine Clarity Clear (Clear) Urine pH 7.5 (5.0-9.0) Urine Specific [place] 1.006 (1.001-1.035) Urine Protein Negative (Negative) Urine Ketones Negative (Negative) Urine Blood Negative /uL (Negative) Urine Nitrite Negative (Negative) Urine Bilirubin Negative (Negative) Urine Urobilinogen Normal mg/dL (Negative) Urine Leukocyte Esterase Negative /uL (Negative) Urine RBC <1 /hpf (0 - 4) Urine WBC <1 /hpf (0 - 5) Urine Squamous Epithelial Cells Mod /hpf (<5) Urine Bacteria /hpf (None Seen) Urine Glucose Normal mg/dL (Normal) Urine Test Negative (Negative) Labs and/or images reviewed: Labs reviewed by me, Image(s) reviewed by me Assessment/Plan Assessment/Plan Acute Cholecystitis status post lap oneal by surgeon Dr. Araujo on 09/13/2024 Rocephin Flagyl Acute dehydration: IV fluids Acute right upper quadrant abdominal pain: [place] Plan discussed with: Patient Date of Service: Sep 13, 2024 Billing Provider: ARGELIA LEVINE MD Common Visit Codes: [id number] INP/OBS CARE(HIGH) ARGELIA LEVINE MD Sep 13, 2024 15:07
[2024-09-13] MEDS: MAALOX PLUS or MAALOX 30 ML PO PRN (21:58)
[2024-09-13] MEDS: MORPHINE SULFATE INJ 2 MG/ml SYRG IV ONE (22:05)
[2024-09-13] MEDS: KETOROLAC TROMETH 30 MG/ML 1ML VIAL IV ONE (23:17)
[2024-09-14] MEDS: HYDROmorphone HCL 2 MG/ML VL/or syr IV PRN ×2 (00:42→15:45)
[2024-09-14 05:00] VITALS: BP 89/46; PULSE 72; RESP 17; TEMP 97.4; O2SAT 91
--- NOTE | 2024-09-14 08:14 | DVHPN2 ---
Progress Note - Dictate Date Seen: Sep 14, 2024 Medical Necessity Reason Pt with a Central, PICC or Fol: No Subjective E: c/o extreme pain last night. given dilaudid and now better. +flatus vital signs Vital Sign Date Time Temp Pulse Resp B/P (MAP) Pulse Ox O2 Delivery O2 Flow Rate FiO2 09/14/24 05:00 97.4 72 17 89/46 (60) 91 97.4 09/13/24 20:00 Room Air* 0 21 Total Intake and Output 09/13/24 09/13/24 09/14/24 15:00 23:00 07:00 Intake Total 50 ml 860 ml 450 ml Balance 50 ml 860 ml 450 ml medications Current Medications Medications Dose Ordered Sig/Deshawn Route Start Time Stop Time Status Last Admin Dose Admin Ceftriaxone Sodium 50 ml @ 100 mls/hr DAILY IV 09/13/24 10:00 09/13/24 09:30 100 MLS/HR Metronidazole 100 ml @ 100 mls/hr Q8HR IV 09/12/24 14:00 09/14/24 05:22 100 MLS/HR Sodium Chloride 1,000 ml @ 60 mls/hr [id number] IV 09/12/24 13:00 09/13/24 22:42 60 MLS/HR Lorazepam 0.5 mg Q6HP PRN PO 09/12/24 13:00 09/13/24 22:44 0.5 MG Al Hydrox/Mg Hydrox/Simethicone 30 ml Q6HP PRN PO 09/12/24 13:00 09/13/24 21:58 30 ML Docusate Sodium 100 mg BIDPRN PRN PO 09/12/24 13:00 Acetaminophen 650 mg Q6HP PRN PO 09/12/24 13:00 Temazepam 15 mg QHSP PRN PO 09/12/24 13:00 Acetaminophen/ Hydrocodone Bitart 1 tab Q4HP PRN PO 09/12/24 13:00 09/13/24 20:08 1 TAB Ondansetron HCl 4 mg Q4HP PRN IV 09/12/24 13:00 09/13/24 18:37 4 MG Morphine Sulfate 2 mg Q30M PRN IV 09/12/24 13:00 Hydromorphone HCl 1 mg Q4HPRN PRN IV 09/14/24 00:30 09/14/24 00:42 1 MG objective GEN: NAD ABD: surgical dressings clean and dry. laboratory and microbiology Laboratory Tests 09/13/24 04:51 Test 09/13/24 04:51 Range/Units Serum Glucose 68 L 74-106 mg/dL Assessment/Plan A: 1. s/p lap cholecystectomy POD #1 P: 1. decrease pain meds 2. ambulate 3. poss DC tomorrow once pain improves. Dietary Evaluation Review Comments: 1. When appropriate, consider starting low fat diet Expected Outcomes/Goals: 1. Pt will consume >75% of estimated needs within 3-5 days Plan discussed with: Patient CUCA PINK MD Sep 14, 2024 08:14
[2024-09-14] MEDS: DOCUSATE SOD 100 MG CAP PO PRN (08:15)
[2024-09-14 08:48] VITALS: BP 96/58; PULSE 76; RESP 14; TEMP 98.4; O2SAT 100
[2024-09-14 09:05] LABS: Basophils # (auto) 0 10 ^3/uL (0-0.2); Basophils % (auto) 0.2 % (0.0-2.0); Eosinophils # (auto) 0 10 ^3/uL (0-0.8); Hemoglobin 11.6 g/dL (12.2-16.2); Lymphocytes # (auto) 1.3 10 ^3/uL (0.4-5.4); Mean Corpuscular Hemoglobin 30.2 pg (28.0-32.0); Mean Corpuscular Hgb Conc. 34.2 g/dL (32.0-36.0); Mean Corpuscular Volume 88.3 fL (80.0-100.0); Monocytes # (auto) 0.9 10 ^3/uL (0-1.3); Monocytes % (auto) 8.3 % (0.0-12.0); Neutrophils # (auto) 8.8 10 ^3/uL (1.6-8.6); Neutrophils % (auto) 79.5 % (37.0-80.0); Platelet Count (auto) 193 10^3/uL (140-450); Red Blood Cells 3.85 10^6/uL (4.0-5.20); Red Cell Distribution Width 12.7 % (11.8-14.3); White Blood Cell 11.1 10^3/uL (4.4-10.8)
--- NOTE | 2024-09-14 09:19 | DVHPN2 ---
Reviewed: Care Plan, H&P, Labs, Medications, Previous Orders, Radiology Changes from previous H/P or p: No Changes Eyes: No Pain, No Vision change, No Conjunctivae inflammation, No Eyelid in flammation, No Other, No Redness ENT: No Ear pain, No Ear discharge, No Nose pain, No Nose discharge, No Nose congestion, No Mouth pain, No Mouth swelling, No Throat pain, No Throat swelling, No Other Cardiovascular: No Chest Pain, No Palpitations, No Orthopnea, No Paroxysmal Noc. Dyspnea, No Edema, No Lt Headedness, No Other Respiratory: No Cough, No Dry, No Shortness of breath, No SOB with excertion, No Wheezing, No Hemoptysis, No Pleuritic Pain, No Sputum, No Other Gastrointestinal: No Nausea, No Vomiting; Abdominal Pain; No Diarrhea, No Constipation, No Melena, No Hematochezia, No Other Genitourinary: No Dysuria, No Frequency, No Incontinence, No Hematuria, No Retention, No Other Musculoskeletal: No other, No neck pain, No shoulder pain, No arm pain, No back pain, No hand pain, No leg pain, No foot pain Skin: No Rash, No Lesions, No Jaundice, No Bruising, No Other Objective Vitals Vital Signs Date Time Temp Pulse Resp B/P (MAP) Pulse Ox O2 Delivery O2 Flow Rate FiO2 09/14/24 08:48 98.4 76 14 96/58 (71) 100 98.4 09/13/24 20:00 Room Air* 0 21 Intake/Output Intake and Output 09/14/24 07:00 Intake Total 1360 ml Balance 1360 ml Intake Oral 590 ml IV Total 770 ml # Voids 4 Medications Current Medications Medications Dose Ordered Sig/Deshawn Route Start Time Stop Time Status Last Admin Dose Admin Ceftriaxone Sodium 50 ml @ 100 mls/hr DAILY IV 09/13/24 10:00 09/14/24 08:24 100 MLS/HR Metronidazole 100 ml @ 100 mls/hr Q8HR IV 09/12/24 14:00 09/14/24 05:22 100 MLS/HR Sodium Chloride 1,000 ml @ 60 mls/hr [id number] IV 09/12/24 13:00 09/13/24 22:42 60 MLS/HR Lorazepam 0.5 mg Q6HP PRN PO 09/12/24 13:00 09/13/24 22:44 0.5 MG Al Hydrox/Mg Hydrox/Simethicone 30 ml Q6HP PRN PO 09/12/24 13:00 09/13/24 21:58 30 ML Docusate Sodium 100 mg BIDPRN PRN PO 09/12/24 13:00 09/14/24 08:15 100 MG Acetaminophen 650 mg Q6HP PRN PO 09/12/24 13:00 Temazepam 15 mg QHSP PRN PO 09/12/24 13:00 Acetaminophen/ Hydrocodone Bitart 1 tab Q4HP PRN PO 09/12/24 13:00 09/13/24 20:08 1 TAB Ondansetron HCl 4 mg Q4HP PRN IV 09/12/24 13:00 09/13/24 18:37 4 MG Morphine Sulfate 2 mg Q30M PRN IV 09/12/24 13:00 Hydromorphone HCl 1 mg Q4HPRN PRN IV 09/14/24 00:30 09/14/24 08:15 1 MG Hydromorphone HCl 0.5 mg Q4HPRN PRN IV 09/14/24 08:15 UNV Laboratory Results Chemistry Test 09/14/24 08:49 Albumin Pending Calcium Level Pending Total Protein Pending LFT Test 09/14/24 08:49 Alanine Aminotransferase (ALT) Pending Alkaline Phosphatase Pending Aspartate Amino Transferase (AST) Pending Total Bilirubin Pending Urinalysis Test 09/12/24 08:54 Urine Color Colorless (Yellow) Urine Clarity Clear (Clear) Urine pH 7.5 (5.0-9.0) Urine Specific [place] 1.006 (1.001-1.035) Urine Protein Negative (Negative) Urine Ketones Negative (Negative) Urine Blood Negative /uL (Negative) Urine Nitrite Negative (Negative) Urine Bilirubin Negative (Negative) Urine Urobilinogen Normal mg/dL (Negative) Urine Leukocyte Esterase Negative /uL (Negative) Urine RBC <1 /hpf (0 - 4) Urine WBC <1 /hpf (0 - 5) Urine Squamous Epithelial Cells Mod /hpf (<5) Urine Bacteria /hpf (None Seen) Urine Glucose Normal mg/dL (Normal) Urine Test Negative (Negative) Labs and/or images reviewed: Labs reviewed by me, Image(s) reviewed by me Assessment/Plan Assessment/Plan Acute Cholecystitis status post lap oneal by surgeon Dr. Araujo on 09/13/2024 Rocephin Flagyl Acute dehydration: IV fluids Acute right upper quadrant abdominal pain: [place] Advanced diet as tolerated Physical therapy Plan discussed with: Patient Date of Service: Sep 14, 2024 Billing Provider: ARGELIA LEVINE MD Common Visit Codes: [id number] INP/OBS CARE(HIGH) ARGELIA LEVINE MD Sep 14, 2024 09:19
[2024-09-14 09:22] LABS: Alanine Aminotransferase 19 U/L (7-40); Albumin 3.7 g/dL (3.2-4.8); Alkaline Phosphatase 49 U/L (46-116); Anion Gap 9 (5-15); Aspartate Aminotransferase 15 U/L (13-40); BUN/Creatinine Ratio 12.1 (10.0-20.0); Bilirubin, Total 0.6 mg/dL (0.2-1.0); Carbon Dioxide 23 mmol/L (20-31); Chloride 106 mmol/L (98-107); Glucose 89 mg/dL (74-106); Potassium 3.7 mmol/L (3.5-5.1); Sodium 138 mmol/L (136-145); Total Protein 6.2 g/dL (5.7-8.2)
[2024-09-14 09:24] LABS: Blood Urea Nitrogen 7 mg/dL (9-23)
[2024-09-14] MEDS: SODIUM CHLORIDE 0.9% 1,000 ML IV SCH (12:30)
[2024-09-14 12:58] VITALS: BP 96/64; PULSE 83; RESP 14; TEMP 97.9; O2SAT 97
[2024-09-14 17:14] VITALS: BP 104/69; PULSE 77; RESP 14; TEMP 98.4; O2SAT 96
[2024-09-14 20:44] VITALS: BP 99/70; PULSE 90; RESP 13; TEMP 98.1; O2SAT 98
[2024-09-15 01:00] VITALS: BP 84/48; PULSE 58; RESP 12; TEMP 98; O2SAT 96
[2024-09-15 04:56] VITALS: BP 87/56; PULSE 70; RESP 12; TEMP 98.1; O2SAT 97
[2024-09-15 08:00] VITALS: PULSE 75; RESP 18
[2024-09-15 09:05] VITALS: BP 100/73; PULSE 62; RESP 16; TEMP 97.7; O2SAT 100
[2024-09-15] MEDS ORDERED: METR-344 PO (10:35)
[2024-09-15] MEDS ORDERED: LEVO500T91 PO (10:35)
[2024-09-15] MEDS ORDERED: HYDR-4902 PO (10:35)
--- NOTE | 2024-09-15 10:37 | DVHPN2 ---
Reviewed: Care Plan, H&P, Labs, Medications, Previous Orders, Radiology Changes from previous H/P or p: No Changes Eyes: No Pain, No Vision change, No Conjunctivae inflammation, No Eyelid inflammation, No Other, No Redness ENT: No Ear pain, No Ear discharge, No Nose pain, No Nose discharge, No Nose congestion, No Mouth pain, No Mouth swelling, No Throat pain, No Throat swelling, No Other Cardiovascular: No Chest Pain, No Palpitations, No Orthopnea, No Paroxysmal Noc. Dyspnea, No Edema, No Lt Headedness, No Other Respiratory: No Cough, No Dry, No Shortness of breath, No SOB with excertion, No Wheezing, No Hemoptysis, No Pleuritic Pain, No Sputum, No Other Gastrointestinal: No Nausea, No Vomiting; Abdominal Pain; No Diarrhea, No Constipation, No Melena, No Hematochezia, No Other Genitourinary: No Dysuria, No Frequency, No Incontinence, No Hematuria, No Retention, No Other Musculoskeletal: No other, No neck pain, No shoulder pain, No arm pain, No back pain, No hand pain, No leg pain, No foot pain Skin: No Rash, No Lesions, No Jaundice, No Bruising, No Other Objective Vitals Vital Signs Date Time Temp Pulse Resp B/P (MAP) Pulse Ox O2 Delivery O2 Flow Rate FiO2 09/15/24 09:05 97.7 62 16 100/73 (82) 100 97.7 09/14/24 20:00 Room Air* 0 21 Intake/Output Intake and Output 09/15/24 07:00 Intake Total 1875 ml Output Total 0 ml Balance 1875 ml Intake Oral 1675 ml IV Total 200 ml Stool Total 0 ml # Voids 8 Medications Current Medications Medications Dose Ordered Sig/Deshawn Route Start Time Stop Time Status Last Admin Dose Admin Ceftriaxone Sodium 50 ml @ 100 mls/hr DAILY IV 09/13/24 10:00 09/15/24 09:07 100 MLS/HR Metronidazole 100 ml @ 100 mls/hr Q8HR IV 09/12/24 14:00 09/15/24 05:58 100 MLS/HR Lorazepam 0.5 mg Q6HP PRN PO 09/12/24 13:00 09/13/24 22:44 0.5 MG Al Hydrox/Mg Hydrox/Simethicone 30 ml Q6HP PRN PO 09/12/24 13:00 09/13/24 21:58 30 ML Docusate Sodium 100 mg BIDPRN PRN PO 09/12/24 13:00 09/15/24 09:06 100 MG Acetaminophen 650 mg Q6HP PRN PO 09/12/24 13:00 Temazepam 15 mg QHSP PRN PO 09/12/24 13:00 Acetaminophen/ Hydrocodone Bitart 1 tab Q4HP PRN PO 09/12/24 13:00 09/15/24 06:33 1 TAB Ondansetron HCl 4 mg Q4HP PRN IV 09/12/24 13:00 09/14/24 12:18 4 MG Morphine Sulfate 2 mg Q30M PRN IV 09/12/24 13:00 Hydromorphone HCl 0.5 mg Q4HPRN PRN IV 09/14/24 08:15 09/14/24 21:04 0.5 MG Sodium Chloride 1,000 ml @ 150 mls/hr Q6H40M IV 09/14/24 12:30 09/15/24 08:30 150 MLS/HR Laboratory Results Laboratory Tests 09/14/24 08:49 Urinalysis Test 09/12/24 08:54 Urine Color Colorless (Yellow) Urine Clarity Clear (Clear) Urine pH 7.5 (5.0-9.0) Urine Specific [place] 1.006 (1.001-1.035) Urine Protein Negative (Negative) Urine Ketones Negative (Negative) Urine Blood Negative /uL (Negative) Urine Nitrite Negative (Negative) Urine Bilirubin Negative (Negative) Urine Urobilinogen Normal mg/dL (Negative) Urine Leukocyte Esterase Negative /uL (Negative) Urine RBC <1 /hpf (0 - 4) Urine WBC <1 /hpf (0 - 5) Urine Squamous Epithelial Cells Mod /hpf (<5) Urine Bacteria /hpf (None Seen) Urine Glucose Normal mg/dL (Normal) Urine Test Negative (Negative) Labs and/or images reviewed: Labs reviewed by me, Image(s) reviewed by me Assessment/Plan Assessment/Plan Acute Cholecystitis status post lap oneal by surgeon Dr. Araujo on 09/13/2024 Rocephin Flagyl Acute dehydration: IV fluids Acute right upper quadrant abdominal pain: [place] Afebrile vital signs stable abdomen is soft having bowel movement tolerating diet Plan discussed with: Patient My Orders Orders - ARGELIA LEVINE MD Procedure Category Date Status Time Sodium Chloride 0.9% PHA 09/14/24 In Process 12:30 Date of Service: Sep 15, 2024 Billing Provider: ARGELIA LEVINE MD Common Visit Codes: [id number] INP/OBS CARE(HIGH) ARGELIA LEVINE MD Sep 15, 2024 10:37
--- NOTE | 2024-09-15 10:40 | DVHDS2 ---
Discharge Summary Date of Admission Sep 12, 2024 at 12:58 Date of Discharge: Sep 15, 2024 Admitting Diagnosis Right upper quadrant abdominal pain Wounds: Lap oneal Labs/Diagnostic Data: Laboratory Results Test 09/14/24 08:49 09/13/24 04:51 09/12/24 08:54 White Blood Count 11.1 10^3/uL (4.4-10.8) Red Blood Count 3.85 10^6/uL (4.0-5.20) Hemoglobin 11.6 g/dL (12.2-16.2) Hematocrit 34.0 % (36.0-46.0) Mean Corpuscular Volume 88.3 fL (80.0-100.0) Mean Corpuscular Hemoglobin 30.2 pg (28.0-32.0) Mean Corpuscular Hemoglobin Concent 34.2 g/dL (32.0-36.0) Red Cell Distribution Width 12.7 % (11.8-14.3) Platelet Count 193 10^3/uL (140-450) Mean Platelet Volume 7.9 fL (6.9-10.8) Neutrophils (%) (Auto) 79.5 % (37.0-80.0) Lymphocytes (%) (Auto) 12.0 % (10.0-50.0) Monocytes (%) (Auto) 8.3 % (0.0-12.0) Eosinophils (%) (Auto) 0.0 % (0.0-7.0) Basophils (%) (Auto) 0.2 % (0.0-2.0) Neutrophils # (Auto) 8.8 10 ^3/uL (1.6-8.6) Lymphocytes # (Auto) 1.3 10 ^3/uL (0.4-5.4) Monocytes # (Auto) 0.9 10 ^3/uL (0-1.3) Eosinophils # (Auto) 0 10 ^3/uL (0-0.8) Basophils # (Auto) 0 10 ^3/uL (0-0.2) Nucleated Red Blood Cells 0.0 % Sodium Level 138 mmol/L (136-145) Potassium Level 3.7 mmol/L (3.5-5.1) Chloride Level 106 mmol/L (98-107) Carbon Dioxide Level 23 mmol/L (20-31) Anion Gap 9 (5-15) Blood Urea Nitrogen 7 mg/dL (9-23) Creatinine 0.58 mg/dL (0.550-1.02) Glomerular Filtration Rate Calc 124 mL/min (>90) BUN/Creatinine Ratio 12.1 (10.0-20.0) Serum Glucose 89 mg/dL (74-106) Calcium Level 9.0 mg/dL (8.7-10.4) Total Bilirubin 0.6 mg/dL (0.2-1.0) Aspartate Amino Transferase (AST) 15 U/L (13-40) Alanine Aminotransferase (ALT) 19 U/L (7-40) Alkaline Phosphatase 49 U/L (46-116) Total Protein 6.2 g/dL (5.7-8.2) Albumin 3.7 g/dL (3.2-4.8) Prothrombin Time 11.9 sec (9.3-11.8) Prothrombin Time INR 1.13 (0.9-1.15) Activated Partial Thromboplast Time 28.3 SEC (24.5-34.5) Lipase 56 U/L (12-53) Urine Color Colorless (Yellow) Urine Clarity Clear (Clear) Urine pH 7.5 (5.0-9.0) Urine Specific [place] 1.006 (1.001-1.035) Urine Protein Negative (Negative) Urine Ketones Negative (Negative) Urine Blood Negative /uL (Negative) Urine Nitrite Negative (Negative) Urine Bilirubin Negative (Negative) Urine Urobilinogen Normal mg/dL (Negative) Urine Leukocyte Esterase Negative /uL (Negative) Urine RBC <1 /hpf (0 - 4) Urine WBC <1 /hpf (0 - 5) Urine Squamous Epithelial Cells Mod /hpf (<5) Urine Bacteria /hpf (None Seen) Urine Glucose Normal mg/dL (Normal) Urine Test Negative (Negative) Other Laboratory Tests 09/14/24 08:49 Brief Hx & Hospital Course: Patient came in for right upper quadrant abdominal pain found to have acute cholecystitis. Underwent lap oneal by Dr. Araujo. Treated with IV antibiotics pain medications and IV fluids postop course uneventful discharged home she will follow up with Dr. Araujo. Consults/Reason for consult Surgeon Dr. Araujo Operations or Procedures Lap oneal Condition at Discharge: Fair Final Diagnosis/Problems List Acute Cholecystitis status post lap oneal by surgeon Dr. Araujo on 09/13/2024 Roclyla Mack Acute dehydration: IV fluids Acute right upper quadrant abdominal pain: [place] Discharge Disposition: Home Discharge Instruct/Medications Diet: Regular Activity: Light activity Follow Up/Referral: Follow up with your primary Dr in one week follow up with surgeon Dr. Araujo in 10 days Medications: Levaquin Flagyl [place] Transmitted to [facility] 35 (Time Taken for discharge summary 35 minutes) Discharge Statement: "Patient was advised to return to the ER or call 911 if any headaches, dizziness, shortness of breath, chest pain, abdominal pain, bleeding, fevers, or worsening of medical condition. Patient was counseled about treatment plan, medications, possible side effects, patientverbalized understanding. All questions were answered to the best of my ability. This discharge took greater then 30 minutes in planning, reviewing documentation, counseling the patient, and discussing with other team members." ASSESSMENT ASSESSMENT Hospital Course Improved Assessment Acute Cholecystitis status post lap oneal by surgeon Dr. Araujo on 09/13/2024 Rocephimukul Gomezyl Acute dehydration: IV fluids Acute right upper quadrant abdominal pain: [place] Date of Service: Sep 15, 2024 Billing Provider: ARGELIA LEVINE MD Common Visit Codes: 19430-QLO/OBS DISCH DAY >30min ARGELIA LEVINE MD Sep 15, 2024 10:40
== END 2024-09-15 13:15 | disposition home or self-care (01) | DRG 263 ==
LOC: ER 08:45 → OVERFLOW 12:58 → EAST 18:13
PROVIDERS: ADMIT Hospitalist; ATTEND Family Medicine
PROC: 0FT44ZZ Resection of Gallbladder, Percutaneous Endoscopic Approach (ICD-10-PCS; principal; 2024-09-13 11:32)
DX: K81.0 Acute cholecystitis (principal); E86.0 Dehydration; Z79.899 Other long term (current) drug therapy
CPT/HCPCS: 36415; 80053; 83690; 85025; 85610; 85730; 86850; 86900; 86901; 99291; G0378; J1100; J1885; J2250; J2405; J2704; J3490

== ENCOUNTER 2025-09-13 11:39 | Inpatient (IN) | payer MEDICAID, OTHER ==
[~2025-09-13] VITALS: Ht 157.5 cm; Wt 56.3 kg
[~2025-09-13 11:39] MED LIST changes: +HYDR-4902 PO; +LEVO500T91 PO; +METR-344 PO
--- NOTE | 2025-09-13 13:26 | ED.PDOC ---
GI ASSESSMENT HPI Comments This is a 30 year-old female who presents to the ED with a chief complaint of R sided abdominal pain with associated symptoms of fever, chills, N/V, and body aches as of X4 days ago. Patient reports a SHx of Cholecystecomy. Patient has no further complaints at this time and otherwise denies symptoms of dizziness, weakness, hematemesis, diarrhea, cough, or throat pain. Chief Complaint: Abdominal Pain Time Seen by MD: 12:51 Primary Care Provider: OUT OF AREA Reviewed Notes: Medications, Allergies Allergies: Coded Allergies: NO KNOWN ALLERGIES (Unverified , 09/03/24) Home Meds Active Scripts Hydrocodone-Acetaminophen (Hydrocodone Bitartrate/AC 5-325 mg) 1 Tab Tab, 1 TAB PO QID PRN, #30 TAB Prov:ARGELIA LEVINE MD 09/15/24 Levofloxacin Hemihydrate (LEVAQUIN 500 MG) 500 Mg Tab, 1 TAB PO DAILY, #10 TAB Prov:ARGELIA LEVINE MD 09/15/24 Metronidazole (Flagyl) 500 Mg Tab, 1 TAB PO TID, #30 TAB Prov:ARGELIA LEVINE MD 09/15/24 Famotidine (PEPCID TABLET) 20 Mg Tb, 1 TAB PO BID PRN for 10 Days, #40 TAB 5 Refills Prov:GABE ASTUDILLO MD 09/03/24 Ondansetron Odt 4MG Tab (ZOFRAN PO) 4 Mg Tb, 4 MG PO Q6HPRN PRN for 10 Days, #40 TAB 0 Refills ODT TAB-DISSOLVE IN MOUTH, THEN SWALLOW Prov:GABE ASTUDILLO MD 09/03/24 Information Source: Patient Mode of Arrival: Ambulatory Timing: Days Duration: Since onset Severity: Moderate Pain Location: RUQ, RLQ Associated sign and symptoms: Nausea, Vomiting, Abdominal Pain, Fever Past Medical History PAST MEDICAL HISTORY: Denies Surgical History: Denies all surgeries [employer] 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 Family History Family History: Reviewed,noncontributory to illness, No family hx of Cancer, No family hx of DM, No family hx of Heart lex, No family hx of HTN, No family hx ofKidney lex, No family hx of Liver lex, No family hx of Lung lex, No family hx of Stroke Social History Smoker: Non-Smoker Alcohol: Denies ETOH Use Drugs: Denies Drug Use Lives In: Home Constitutional: reports: chills, fever; denies: diaphoresis, fatigue, malaise, sweats, weakness, others EENTM: denies: blurred vision, double vision, ear bleeding, ear discharge, ear drainage, ear pain, ear ringing, eye pain, eye redness, hearing loss, mouth pain, mouth swelling, nasal discharge, nose bleeding, nose congestion, nose pain, photophobia, tearing, throat pain, throat swelling, voice changes, others Respiratory: denies: cough, hemoptysis, orthopnea, SOB at rest, shortness of breath, SOB with excertion, stridor, wheezing, others Cardiovascular: denies: chest pain, dizzy spells, diaphoresis, Dyspnea on exertion, edema, irregular heart beat, left arm pain, lightheadedness, palpitations, PND, syncope, others Gastrointestinal: reports: abdominal pain, nausea, vomiting; denies: abdomen distended, blood streaked bowels, constipated, diarrhea, dysphagia, difficulty swallowing, hematemesis, melena, poor appetite, poor fluid intake, rectal bleeding, rectal pain, others Genitourinary: denies: abnormal vagina bleeding, burning, dyspareunia, dysuria, flank pain, frequency, hematuria, incontinence, pain, , vagina discharge, urgency, others Neurological: denies: dizziness, fainting, headache, left sided numbness, left sided weakness, numbness, paresthesia, pre-existing deficit, right sided numbness, right sided weakness, seizure, speech problems, tingling, tremors, weakness, others Musculoskeletal: denies: back pain, gout, joint pain, joint swelling, muscle pain, muscle stiffness, neck pain, others Integumetry: denies: bruises, change in color, change in hair/nails, dryness, laceration, lesions, lumps, rash, wounds, others Allergic/Immunocompromised: denies: Difficulty Healing, Frequent Infections, Hives, Itching, others Hematologic/Lymphatic: denies: anemia, blood clots, easy bleeding, easy bruising, swollen glands, others Endocrine: denies: excessive hunger, excessive sweating, excessive thirst, excessive urination, flushing, intolerance to cold, intolerance to heat, unexplained weight gain, unexplained weight loss, others Psychiatric: denies: anxiety, bipolar disorder, depression, hopeless, panic disorder, schizophrenia, sleepless, suicidal, others All Other Systems: Reviewed and Negative Physical Exam General Appearance: Moderate Distress HEENT: Normal ENT Inspection, Pharynx Normal, TMs Normal Neck: Full Range of Motion, Non-Tender, Normal, Normal Inspection Respiratory: Chest Non-Tender, Lungs Clear, No Accessory Muscle Use, No Respiratory Distress, Normal Breath Sounds Cardiovascular: No Edema, No JVD, No Murmur, No Gallop, Normal Peripheral Pulses, Regular Rate/Rhythm Breast Exam: Deferred Gastrointestinal: No Organomegaly, Non Tender, No Pulsatile Mass, Normal Bowel Sounds, Soft Genitalia: Deferred Pelvic: Deferred Rectal: Deferred Extremities: No calf tenderness, Normal capillary refill, Normal inspection, Normal range of motion, Non-tender, No pedal edema Musculoskeletal : Apperance: Normal Neurologic: Alert, design technology professor II-XII nml as Tested, No Motor Deficits, Normal Affect, Normal Mood, No Sensory Deficits Cerebellar Function: Normal Reflexes: Normal Skin: Dry, Normal Color, Warm Peripheral Pulses: 3+ Radial (R), 3+ Radial (L) Lymphatic: No Adenopathy Was a procedure done? Was a procedure done?: No GI differential Dx Differential Diagnosis: Constipation, Diverticular disease, Esophagitis, Gastritis/PUD, Gastroenteritis, Dehydration, Food Poisoning, Bacterial, Parasitic, Viral X-Ray, Labs, Meds, VS Vital Signs Date Time Temp Pulse Resp B/P (MAP) Pulse Ox O2 Delivery O2 Flow Rate FiO2 09/13/25 11:49 101.9 130 20 105/64 97 101.9 Lab Test 09/13/25 13:33 Range/Units White Blood Count Pending Red Blood Count Pending Hemoglobin Pending Hematocrit Pending Mean Corpuscular Volume Pending Mean Corpuscular Hemoglobin Pending Mean Corpuscular Hemoglobin Concent Pending Red Cell Distribution Width Pending Platelet Count Pending Mean Platelet Volume Pending Neutrophils (%) (Auto) Pending Lymphocytes (%) (Auto) Pending Monocytes (%) (Auto) Pending Basophils (%) (Auto) Pending Neutrophils # (Auto) Pending Lymphocytes # (Auto) Pending Monocytes # (Auto) Pending Sodium Level Pending Potassium Level Pending Chloride Level Pending Carbon Dioxide Level Pending Anion Gap Pending Blood Urea Nitrogen Pending Creatinine Pending Glomerular Filtration Rate Calc Pending BUN/Creatinine Ratio Pending Serum Glucose Pending Calcium Level Pending Patient alert. Came in because of fever. Vitals stable. Answering questions. Possible pyelonephritis. Establish intravenous access. Was given fluids. Was given Rocephin. Explained to the patient. Continue monitoring. Time of 1ST Reevaluation: 13:53 Reevaluation 1ST: Unchanged Patient Education/Counseling: Diagnosis, Treatment Family Education/Counseling: No Family Present SEPSIS Sepsis Screen Date sepsis recognized/suspect: Sep 13, 2025 Time Sepsis recognized/suspect: 1149 Recent Procedure: No On Antibiotic Therapy: No Respiratory Rate >20: No Heart Rate >90: No Temp<36 C (96.8 F) or >38.3 C: No SBP <90 or MAP <65 mmHG: No New Acute Mental Status Change: No Is the patient on CPAP, BIPAP,: No Physician Orders Complete Blood Count (09/13/25 13:25) Urinalysis (09/13/25 13:25) Basic Metabolic Panel (09/13/25 13:25) Sodium Chloride 0.9% (09/13/25 13:30) Vital Signs Date Time Temp Pulse Resp B/P (MAP) Pulse Ox O2 Delivery O2 Flow Rate FiO2 09/13/25 11:49 101.9 130 20 105/64 97 101.9 Laboratory Tests Test 09/13/25 13:33 White Blood Count Pending Departure 1 Departure Time of Disposition: 13:46 Impression: Primary Impression: Sepsis, unspecified organism Qualified Codes: A41.9 - Sepsis, unspecified organism Additional Impression: Pyelonephritis Disposition: ADMITTED INPATIENT Admit to: Med Surg Condition: Guarded Critical Care Note Critical Care Time?: Yes (90 min-critical care time only) Stability Stability form required: No Heart Score Heart Score: Heart Score Response (Comments) Value History N/A 0 EKG N/A 0 Age N/A 0 Risk Factors N/A 0 Troponin N/A 0 Total 0 I personally scribed for NEISHA PACHECO MD ([email or web address]) on 09/13/25 at 13:26. Electronically submitted by Мария Fletcher ([email or web address]). NEISHA PACHECO MD Sep 13, 2025 13:26
[2025-09-13 13:42] LABS: Hematocrit 39.1 % (36.0-46.0); Hemoglobin 13.2 g/dL (12.2-16.2); Mean Corpuscular Hemoglobin 29.4 pg (28.0-32.0); Mean Corpuscular Volume 87.0 fL (80.0-100.0); Nucleated Red Blood Cells % 0.0 %
[2025-09-13 13:48] LABS: Chloride 102 mmol/L (98-107); Potassium 3.7 mmol/L (3.5-5.1); Sodium 136 mmol/L (136-145)
[2025-09-13 13:49] LABS: Anion Gap 9 (5-15); Calcium 9.1 mg/dL (8.7-10.4); Carbon Dioxide 25 mmol/L (20-31)
[2025-09-13 13:54] LABS: BUN/Creatinine Ratio 8.5 (10.0-20.0); Blood Urea Nitrogen 8 mg/dL (9-23); Glucose 114 mg/dL (74-106)
[2025-09-13 14:23] LABS: Urine Protein, UAD 2+ (Negative); Urine WBC Clumps PRESENT /hpf (None Seen)
[2025-09-13 15:32] LABS: Alanine Aminotransferase 18.0 U/L (7-40); Albumin 4.3 g/dL (3.2-4.8); Alkaline Phosphatase 62.0 U/L (46-116); Total Protein 7.4 g/dL (5.7-8.2)
[2025-09-13 15:33] LABS: Bilirubin, Direct 0.2 mg/dL (<0.3); Bilirubin, Total 0.7 mg/dL (0.2-1.0)
--- NOTE | 2025-09-13 15:58 | DVHHPRES ---
History of Present Illness Resident Creating Document: ALBA LAU RESIDENT History of Present Illness Patient is a 30-year-old female with a significant medical history presented to the ED with a chief complaint of right flank pain which has been going on since last Sunday. Patient reported she has been having fevers up to 102 degree F associated with chills. Reported of dysuria, increased frequency, right flank pain. She denied any nausea, vomiting, constipation, diarrhea. In the ER patient was seen to be tachycardic, fever at 101.9 F, blood pressure within normal limits,, UTI was seen. Patient will be admitted for further evaluation Medical history: Denies Surgical history: Cholecystectomy Social history: Patient denies smoking, alcohol, drug use Home medications: Denies Review of Systems Review of Systems Patient was seen to have increased breathing rate, tachycardic Complains of [id number] abdominal pain in the right flank, right lower quadrant Currently reports to be on her menstrual cycle Allergies: Coded Allergies: NO KNOWN ALLERGIES (Unverified , 09/03/24) Medications Current Medications Medications Dose Ordered Sig/Deshawn Route Start Time Stop Time Status Last Admin Dose Admin Ceftriaxone Sodium 50 ml @ 100 mls/hr DAILY@09 IV 09/14/25 09:00 Ondansetron HCl 4 mg Q6HPRN PRN IV 09/13/25 15:15 Exam Vital Signs Vital Signs Date Time Temp Pulse Resp B/P (MAP) Pulse Ox O2 Delivery O2 Flow Rate FiO2 09/13/25 11:49 101.9 130 20 105/64 97 101.9 Exam Skin - Patients skin is warm and dry. HEENT - normocephalic, atraumatic, moist mucous membranes, no scleral icterus, no conjunctival pallor Neck - full ROM, no LAD, no JVD Pulmonary - B/L clear breath sounds without any wheezing or rales cardiovascular - tachycardic, regular S1,S2 heard, no added sounds, no murmurs heard. GI - soft abdomen with tenderness to palpation in the right upper quadrant, right lumbar, right CVA tenderness. no hepatospleenomegaly. Bowel sounds normoactive Neurological - Patient is A/O X 4 . Bilateral upper extremity strength 5/5, bilateral lower extremity strength 5/5, no facial droop, normal speech, no tremor, no sensory deficiets. Labs/Xrays Labs Test 09/13/25 14:05 09/13/25 13:33 09/13/25 12:24 Range/Units Lactic Acid Level 1.8 0.4-2.0 mmol/L White Blood Count 10.4 4.4-10.8 10^3/uL Red Blood Count 4.50 4.0-5.20 10^6/uL Hemoglobin 13.2 12.2-16.2 g/dL Hematocrit 39.1 36.0-46.0 % Mean Corpuscular Volume 87.0 80.0-100.0 fL Mean Corpuscular Hemoglobin 29.4 28.0-32.0 pg Mean Corpuscular Hemoglobin Concent 33.7 32.0-36.0 g/dL Red Cell Distribution Width 13.6 11.8-14.3 % Platelet Count 156 140-450 10^3/uL Mean Platelet Volume 7.9 6.9-10.8 fL Neutrophils (%) (Auto) 83.8 H 37.0-80.0 % Lymphocytes (%) (Auto) 6.1 L 10.0-50.0 % Monocytes (%) (Auto) 9.9 0.0-12.0 % Eosinophils (%) (Auto) 0.0 0.0-7.0 % Basophils (%) (Auto) 0.2 0.0-2.0 % Neutrophils # (Auto) 8.7 H 1.6-8.6 10 ^3/uL Lymphocytes # (Auto) 0.6 0.4-5.4 10 ^3/uL Monocytes # (Auto) 1.0 0-1.3 10 ^3/uL Eosinophils # (Auto) 0 0-0.8 10 ^3/uL Basophils # (Auto) 0 0-0.2 10 ^3/uL Nucleated Red Blood Cells 0.0 % Sodium Level 136 136-145 mmol/L Potassium Level 3.7 3.5-5.1 mmol/L Chloride Level 102 98-107 mmol/L Carbon Dioxide Level 25 20-31 mmol/L Anion Gap 9 5-15 Blood Urea Nitrogen 8 L 9-23 mg/dL Creatinine 0.94 0.550-1.02 mg/dL Glomerular Filtration Rate Calc 83 >90 mL/min BUN/Creatinine Ratio 8.5 L 10.0-20.0 Serum Glucose 114 H 74-106 mg/dL Calcium Level 9.1 8.7-10.4 mg/dL Urine Color Light-orange Yellow Urine Clarity Cloudy H Clear Urine pH 6.5 5.0-9.0 Urine Specific [place] 1.022 1.001-1.035 Urine Protein 2+ H Negative Urine Ketones 2+ H Negative Urine Blood 3+ H Negative /uL Urine Nitrite Negative Negative Urine Bilirubin Negative Negative Urine Urobilinogen Normal Negative mg/dL Urine Leukocyte Esterase 3+ Negative /uL Urine RBC 14 0 - 4 /hpf Urine WBC Clumps Present None Seen /hpf Urine Microscopic WBC 385 H 0-5 /HPF Urine Squamous Epithelial Cells Few <5 /hpf Urine Bacteria Few H None Seen /hpf Urine Glucose Normal Normal mg/dL SEPSIS Sepsis Screen Date sepsis recognized/suspect: Sep 13, 2025 Time Sepsis recognized/suspect: 1148 Recent Procedure: No On Antibiotic Therapy: No Respiratory Rate >20: No Heart Rate >90: No Temp<36 C (96.8 F) or >38.3 C: No SBP <90 or MAP <65 mmHG: No New Acute Mental Status Change: No Is the patient on CPAP, BIPAP,: No Physician Orders Urine Bacterial Culture (09/13/25 13:46) Blood Culture (09/13/25 13:46) Sodium Chloride 0.9% (09/13/25 14:00) Admit (09/13/25 15:01) Oxygen By Nasal Cannula (09/13/25 15:01) Stat Ekg For Chest Pain (09/13/25 15:01) Notify Md Of Changes From Base (09/13/25 15:01) Emergency Dysrhythmia Protocol (09/13/25 15:01) Ceftriaxone 1gm/50ml (Rocephin) (09/14/25 09:00) Ondansetron Hcl (Zofran) (09/13/25 15:15) Hepatic Panel (09/13/25 15:01) Rapid Influenza A&B (09/13/25 15:01) Covid19 Antigen Avani (09/13/25 ) Chest Xray 1 View (09/13/25 15:01) Complete Blood Count (09/14/25 04:00) Basic Metabolic Panel (09/14/25 04:00) Vital Signs Date Time Temp Pulse Resp B/P (MAP) Pulse Ox O2 Delivery O2 Flow Rate FiO2 09/13/25 11:49 101.9 130 20 105/64 97 101.9 Laboratory Tests Test 09/13/25 13:33 09/13/25 14:05 White Blood Count 10.4 10^3/uL (4.4-10.8) Lactic Acid Level 1.8 mmol/L (0.4-2.0) Assessment/Plan Assessment/Plan Intractable abdominal pain Sepsis likely due to UTI Probable pyelonephritis Gastroduodenitis h/o cholecystectomy - CT abdomen pelvis with IV contrast showed right-sided perinephric fat stranding, nonobstructing right renal calculus, gastroduodenitis - IV fluids - blood culture, urine culture pending - IV ceftriaxone - Protonix IV Goals of care discussed with the patient for over 17 minutes. Full code Time spent: 34 minutes Plan discussed with Dr. Malagon Plan discussed with: Patient, Other (RN) My Orders Orders - ALBA LAU Procedure Category Date Status Time Admit ADMIT 09/13/25 Transmitted 15:01 Oxygen By Nasal RT 09/13/25 Transmitted Cannula 15:01 Stat Ekg For Chest NEO 09/13/25 In Process Pain 15:01 Notify Md Of Changes NEO 09/13/25 In Process From Base 15:01 Emergency Dysrhythmia NEO 09/13/25 In Process Protocol 15:01 Ceftriaxone 1gm/50ml PHA 09/14/25 In Process (Rocephin) 09:00 Ondansetron Hcl PHA 09/13/25 In Process (Zofran) 15:15 Hepatic Panel LAB 09/13/25 In Process 15:01 Rapid Influenza A&B LAB 09/13/25 Logged 15:01 Covid19 Antigen Avani LAB 09/13/25 Logged Chest Xray 1 View XY 09/13/25 Logged 15:01 Complete Blood Count LAB 09/14/25 Verified 04:00 Basic Metabolic Panel LAB 09/14/25 Verified 04:00 Date of Service: Sep 13, 2025 Billing Provider: ROZ MALAGON MD Common Visit Codes: [id number] INP/OBS CARE (HIGH) Secondary Visit Codes: [id number] CARE PLAN 30 MINUTES ALBA LAU RESIDENT Sep 13, 2025 15:58 ROZ MALAGON MD Sep 13, 2025 23:15
[2025-09-13] MEDS: SODIUM CHLORIDE 0.9% 1,000 ML IV ONE ×3 (16:49→17:01)
[2025-09-13] MEDS: ONDANSETRON HCL 4 MG/2 ML VIAL IV ONE (16:52)
[2025-09-13] MEDS: MORPHINE SULFATE 4 MG/ML SYR/VIAL IV PRN (16:53)
[2025-09-13 17:10] LABS: COVID19 ANTIGEN SOFIA FIA NEGATIVE (NEGATIVE)
--- NOTE | 2025-09-13 17:21 | DVH ---
CHEST RADIOGRAPH Indication: SOB Technique: Single frontal view of the chest was obtained Comparison: None FINDINGS: Lines and Tubes: None Lungs: No focal consolidation. Pleura: No effusion. No pneumothorax. Cardiomediastinal contours: Unremarkable Bones: No acute osseous abnormality. IMPRESSION: 1. No acute cardiopulmonary disease.
[2025-09-13] MEDS: IOHEXOL 300 MG/ML 100ML BOTTLE IJ ONE (17:47)
--- NOTE | 2025-09-13 19:19 | DVH ---
Exam: CT CT AB PEL WITH IV CON ONLY History: R CVA tenderness, R flank pain, sepsis, UTI Comparison Study: None TECHNIQUE: Multidetector CT of the abdomen and pelvis with IV contrast. Axial, coronal and sagittal multiplanar reformats were obtained from the axial data set by the technologist. Radiation Dose Information: CT Dose: CTDI volume is 6.1 mGy. Dose-length product is 3.62 mGy*cm FINDINGS: Bases are clear. Partially visualized heart is unremarkable. Status post cholecystectomy. Mild splenomegaly. Otherwise, liver, spleen, pancreas and adrenal glands unremarkable. Status post cholecystectomy. Minimal intrahepatic biliary ductal dilatation. Areas of hypoenhancement of the right kidney with moderate right-sided perinephric fat stranding. Otherwise, kidneys, and ureters unremarkable. Mild distention of the urinary bladder which is otherwise unremarkable. Uterus is unremarkable. Small amount of free fluid within the cul-de-sac. Mild wall thickening of the stomach and proximal duodenum with distention of the proximal duodenum up to 2.7 cm. The remainder of the small bowel loops unremarkable. The distal small bowel loops are stool-filled and nondistended. Appendix is not completely visualized with a visualized appendix unremarkable. Without visualization of the Appendix, can not exclude acute appendicitis. Liquid stool within the cecum and ascending colon. Under of the large bowel is unremarkable. No evidence of intraperitoneal free air. No evidence of aortic aneurysm or dissection. No significant lymphadenopathy. Soft tissues are unremarkable. Acute osseous abnormalities. IMPRESSION: Areas of hypoenhancement of the right kidney with moderate right-sided perinephric fat stranding. Correlate for pyelonephritis. Possible nonobstructing right renal calculus. Small amount of free fluid within the pelvis. Gastro duodenitis.
[2025-09-13 21:28] VITALS: PULSE 121; RESP 20; O2SAT 98
[2025-09-13 21:32] VITALS: BP 113/70; PULSE 121; RESP 20; TEMP 101.1; O2SAT 98
[2025-09-13] MEDS: ACETAMINOPHEN 325 MG TAB PO PRN (22:29)
[2025-09-13 22:30] VITALS: BP 113/70; PULSE 121; RESP 20; TEMP 101.1; O2SAT 98
[2025-09-13] MEDS: PANTOPRAZOLE 40 MG/10 ML VIAL INJ IV ONE (22:30)
[2025-09-13] MEDS: SODIUM CHLORIDE 0.9% 500 ML IV ONE (22:34)
[2025-09-13] MEDS: HYDROcodone-ACET 5/325MG TAB PO PRN (22:35)
[2025-09-13] MEDS: SODIUM CHLORIDE 0.9% 1,000 ML IV SCH (22:45)
[2025-09-14] VITALS (7 sets, daily range): BP systolic 91–116; BP diastolic 47–76; PULSE 68–108; RESP 14–20; TEMP 96.8–100.2; O2SAT 96–100
[2025-09-14 05:27] LABS: Hematocrit 28.5 % (36.0-46.0); Hemoglobin 9.7 g/dL (12.2-16.2); Mean Corpuscular Hemoglobin 30.0 pg (28.0-32.0); Mean Corpuscular Volume 87.9 fL (80.0-100.0); Nucleated Red Blood Cells % 0.0 %
[2025-09-14 05:38] LABS: Sodium 141 mmol/L (136-145)
[2025-09-14 05:39] LABS: Anion Gap 9 (5-15); Carbon Dioxide 23 mmol/L (20-31)
[2025-09-14 05:41] LABS: Calcium 6.8 mg/dL (8.7-10.4); Chloride 109 mmol/L (98-107); Potassium 3.4 mmol/L (3.5-5.1)
[2025-09-14 05:45] LABS: BUN/Creatinine Ratio 9.4 (10.0-20.0)
[2025-09-14 05:46] LABS: Blood Urea Nitrogen 6 mg/dL (9-23); Glucose 143 mg/dL (74-106)
[2025-09-14] MEDS ORDERED: PANTOPRAZOLE 40 MG TAB PO SCH (06:00)
[2025-09-14] MEDS: PANTOPRAZOLE 40 MG/10 ML VIAL INJ IV SCH (08:48)
[2025-09-14] MEDS: POTASSIUM EFFERVESENT TAB 25 MEQ PO ONE (08:48)
[2025-09-14] MEDS: SODIUM CHLORIDE 0.9% 500 ML IV ONE (08:49)
[2025-09-14 10:15] LABS: Alanine Aminotransferase 22.0 U/L (7-40)
[2025-09-14 10:16] LABS: Bilirubin, Direct 0.2 mg/dL (<0.3); Bilirubin, Total 0.4 mg/dL (0.2-1.0)
[2025-09-14 10:24] LABS: Albumin 3.0 g/dL (3.2-4.8); Alkaline Phosphatase 45.0 U/L (46-116); Total Protein 5.4 g/dL (5.7-8.2)
--- NOTE | 2025-09-14 15:23 | DVH ---
INDICATION: suspected appendicitis, pain TECHNIQUE: Multiple real-time sonographic images were obtained of the right lower quadrant. COMPARISON: US GALLBLADDER on DOS: 09/12/24 FINDINGS: The appendix is not visualized. There is mild free fluid in the pelvis, superior to the urinary bladder. IMPRESSION: The appendix is not visualized Mild free fluid in the pelvis, superior to the urinary bladder
--- NOTE | 2025-09-14 17:51 | DVH ---
INDICATION: pelvic pain right side TECHNIQUE: Multiple real-time grayscale transabdominal sonographic images along with color and duplex Doppler of the uterus and ovaries were obtained. COMPARISON: None FINDINGS: The uterus measures 8.9 x 4.1 x 5.6 cm. The endometrial stripe measures by 1.7 mm. Mild free fluid in the cul-de-sac. There are tiny subcentimeter nabothian cysts in the cervix. Right ovary measures 2.6 x 1.6 x 2.2 cm with normal Doppler color flow Left ovary measures 2.3 x 1.5 x 2.5 cm with normal Doppler color flow Bilateral simple ovarian cysts versus follicles measuring up to 1.3 cm on the right and 1 cm on the left No adnexal masses. IMPRESSION: No acute sonographic abnormality of the pelvis Mild free fluid, likely physiologic
--- NOTE | 2025-09-14 18:13 | DVHPNRES ---
Progress Note Date Seen: Sep 14, 2025 Resident Creating Document: KI VELARDE RESIDENT Medical Necessity Reason Pt with a Central, PICC or Fol: No Subjective Review of Systems Vesta Reeves is a 30-year-old female with no significant past medical history who presented to the ED with the chief complaint of right flank pain and right lower quadrant pain since 6 days. She describes the pain as dull, 8/10 in intensity, with no aggravating or relieving factors. The patient mentioned she had been having fevers up to 102 degree F associated with chills since 4 days. She also had dysuria and decreased urinary frequency. She denied any nausea vomiting constipation or diarrhea. Past medical history: Denies Past surgical history: Cholecystectomy Social & Personal history: Smokes weed occasionally, occasional alcohol consumption, consumption of edibles- CBD Allergies: No known allergies Patient seen and examined at bedside. Patient is alert and oriented to time, place person and responding to all questions. Eyes: No Pain, No Vision change, No Conjunctivae inflammation, No Eyelid inflammation, No Redness ENT: No Ear pain, No Ear discharge, No Nose pain, No Nose discharge, No Nose congestion, No Mouth pain, No Mouth swelling, No Throat pain, No Throat swelling Cardiovascular: No Chest Pain, No Palpitations, No Orthopnea, No Paroxysmal No Dyspnea, No Edema, No Lt Headedness Respiratory: No Cough, No Dry, No Shortness of breath, No SOB with exertion, No Wheezing, No Hemoptysis, No Pleuritic Pain, No Sputum Gastrointestinal: No Nausea, No Vomiting, Abdominal Pain, No Diarrhea, No Constipation, No Melena, No Hematochezia Genitourinary: No Dysuria, No Frequency, No Incontinence, No Hematuria, No Retention Objective vital signs Vital Sign Date Time Temp Pulse Resp B/P (MAP) Pulse Ox O2 Delivery O2 Flow Rate FiO2 09/14/25 13:00 98.5 108 20 116/76 (89) 97 98.5 09/14/25 07:58 Room Air* 0 21 Total Intake and Output 09/13/25 09/13/25 09/14/25 15:00 23:00 07:00 Intake Total 50 ml 100 ml Balance 50 ml 100 ml medications Current Medications Medications Dose Ordered Sig/Deshawn Route Start Time Stop Time Status Last Admin Dose Admin Ceftriaxone Sodium 50 ml @ 100 mls/hr DAILY@09 IV 09/14/25 09:00 09/14/25 08:54 100 MLS/HR Ondansetron HCl 4 mg Q6HPRN PRN IV 09/13/25 15:15 Morphine Sulfate 2 mg Q6HPRN PRN IV 09/13/25 16:15 09/14/25 11:10 2 MG Acetaminophen 650 mg Q6HP PRN PO 09/13/25 16:00 09/13/25 22:29 650 MG Acetaminophen/ Hydrocodone Bitart 1 tab Q6HPRN PRN PO 09/13/25 16:00 09/14/25 15:27 1 TAB Sodium Chloride 1,000 ml @ 100 mls/hr Q10H IV 09/13/25 23:00 09/14/25 08:54 100 MLS/HR Pantoprazole Sodium 40 mg DAILY IV 09/14/25 10:00 09/14/25 08:48 40 MG Metronidazole 100 ml @ 100 mls/hr Q8HR IV 09/14/25 22:00 Examination General Appearance: Cooperative. Well developed. Well nourished. NAD Head Exam: Normal inspection Neck Exam: Normal inspection. Non-tender. Normal alignment Pulmonary/Respiratory: Chest non-tender. Clear bilateral breath sounds, no crackles, no wheezing. Cardiovascular/Chest: Regular rate and rhythm. No murmurs. No JVD. Peripheral Pulses: 2+ Radial (R). 2+ Radial (L). 2+ Pedal (R). 2+ Pedal (L) Abdominal Exam: Normal bowel sounds. Soft. Tenderness in right lower quadrant, tenderness at McBurney's point, right flank and CVA nontender, No hepatospenomegaly. No masses Ankle Exam: Negative ankle edema Lower extremities: Negative lower extremity edema Neuro/Mental Status: A&O x4. Coherent. Thoughts/Psych: Normal thought pattern. Appropriate mood and affect. Good judgement and insight Skin Exam: Normal inspection. Normal color. Warm. Dry laboratory and microbiology Laboratory Tests 09/14/25 05:05 Test 09/14/25 05:05 Range/Units Serum Glucose 143 H 74-106 mg/dL Microbiology Date/Time Source Procedure Growth Status 09/13/25 14:10 Blood Blood Culture - Preliminary NO GROWTH AFTER 24 HOURS OF INCUBATION. Resulted 09/13/25 12:24 Voided Urine Urine Culture - Preliminary Resulted Labs and/or images reviewed: Labs reviewed by me, Image(s) reviewed by me Problem List/Assessment/Plan Problem List/Assessment/Plan # Sepsis, likely due to UTI # intractable abdominal pain, likely due to above # rule out appendicitis # Acute pyelonephritis # ruled out ectopic - UA positive for UTI - blood culture-no growth after 24 hours - urine culture prelim- >100,000 CFU - IV ceftriaxone and Flagyl - NS at 100 mL/hours - right lower quadrant ultrasound - appendix not visualized, small amount of free fluid in pelvis - pelvic ultrasound-pending - surgical consult placed, pending # Gastroduodenitis - Protonix 40 mg daily IV - Zofran q.4 PRN Goals of care discussed with the patient for > 20 minutes, full code Plan discussed with Dr. Malagon Plan discussed with: Patient My Orders My Orders Orders - KI VELARDE RESIDENT Procedure Category Date Status Time Transvaginal Us Non Ob US 09/14/25 Taken Sepsis reassessment post fluid Is the fluid challenge complet: Yes Date of Reassessment: Sep 13, 2025 Time of Reassessment: 1918 Blood Culture Time: 1420 Time Antibiotics Given: 1652 Systolic BP: 104 Diastolic BP: 55 Blood Pressure Mean: 71 Respiration: 20 Respiratory Effort: Non-Labored Respiratory Pattern: Regular Oxygen Saturation: 99 Pulse Rate: 112 Pulse Location: Radial Pulse Strength: Normal Pulse Assessment Method: Doppler Pulse Rhythm: Regular Capillary Refill: < 3 seconds Heart Sounds: S1 & S2 Breath sounds: Clear Skin Moisture: Dry Skin Tugor: WNL Skin Color: WNL Date of Service: Sep 14, 2025 Billing Provider: ROZ MALAGON MD Common Visit Codes: [id number] INP/OBS CARE(HIGH) KI VELARDE RESIDENT Sep 14, 2025 18:13 ROZ MALAGON MD Sep 14, 2025 22:53
--- NOTE | 2025-09-14 18:51 | DVHINCON2 ---
Consultation - Surgical Date Seen: Sep 14, 2025 Referring Physician Reason for Consultation Right lower quadrant pain History of Present Illness History of Present Illness Mrs. Reeves is a 30-year-old female who presented with lower midline and right- sided abdominal pain since Sunday. Pain is associated with fevers at home as high as 103, chills, diaphoresis, some nausea but no vomiting. Given that she was feeling unwell she did not have much to eat but whenever she ate she tolerated. She is having regular bowel movements, without any changes. Denies any past history is of UTI/pyelonephritis/kidney stones. Patient is currently on her menstrual period. Past Medical/Surgical History Past Medical/Surgical History Past medical history denies Past surgical history laparoscopic cholecystectomy Family and Social History Family and Social History Family history noncontributory ETOH occasional T Ob/drugs denies Allergies and medications Allergies: Coded Allergies: NO KNOWN ALLERGIES (Unverified , 09/03/24) Home Meds No Active Prescriptions or Reported Meds Review of systems Review of Systems: HEENT:Normal, CVS:Normal, RESPIRATORY:Normal, GI:Abnormal (See HPI), :Abnormal (See HPI), MSK:Normal, NEURO:Normal Examination Vital signs Vital Signs Date Time Temp Pulse Resp B/P (MAP) Pulse Ox O2 Delivery O2 Flow Rate FiO2 09/14/25 18:00 96.8 68 19 95/66 (76) 96 96.8 09/14/25 07:58 Room Air* 0 21 Medications Current Medications Medications (Trade) Dose Ordered Sig/Deshawn Route PRN Reason Start Time Stop Time Status Last Admin Ceftriaxone Sodium 50 ml @ 100 mls/hr DAILY@09 IV 09/14/25 09:00 09/14/25 08:54 Pantoprazole Sodium (Protonix Tablet) 40 mg DAILY@0600 PO 09/14/25 06:00 09/13/25 21:35 DC Sodium Chloride 1,000 ml @ 100 mls/hr Q10H IV 09/13/25 23:00 09/14/25 08:54 Pantoprazole Sodium (Protonix) 40 mg DAILY IV 09/14/25 10:00 09/14/25 08:48 Metronidazole 100 ml @ 100 mls/hr Q8HR IV 09/14/25 22:00 Laboratory Labs Test 09/14/25 09:35 09/14/25 05:05 09/13/25 16:34 09/13/25 14:05 Range/Units Total Bilirubin 0.4 0.2-1.0 mg/dL Direct Bilirubin 0.2 <0.3 mg/dL Aspartate Amino Transferase (AST) 25 13-40 U/L Alanine Aminotransferase (ALT) 22 7-40 U/L Alkaline Phosphatase 45 L 46-116 U/L Total Protein 5.4 L 5.7-8.2 g/dL Albumin 3.0 L 3.2-4.8 g/dL White Blood Count 7.3 # 4.4-10.8 10^3/uL Red Blood Count 3.24 L 4.0-5.20 10^6/uL Hemoglobin 9.7 #L 12.2-16.2 g/dL Hematocrit 28.5 #L 36.0-46.0 % Mean Corpuscular Volume 87.9 80.0-100.0 fL Mean Corpuscular Hemoglobin 30.0 28.0-32.0 pg Mean Corpuscular Hemoglobin Concent 34.2 32.0-36.0 g/dL Red Cell Distribution Width 13.7 11.8-14.3 % Platelet Count 111 L 140-450 10^3/uL Mean Platelet Volume 7.7 6.9-10.8 fL Neutrophils (%) (Auto) 75.7 37.0-80.0 % Lymphocytes (%) (Auto) 11.3 10.0-50.0 % Monocytes (%) (Auto) 12.9 H 0.0-12.0 % Eosinophils (%) (Auto) 0.0 0.0-7.0 % Basophils (%) (Auto) 0.1 0.0-2.0 % Neutrophils # (Auto) 5.5 1.6-8.6 10 ^3/uL Lymphocytes # (Auto) 0.8 0.4-5.4 10 ^3/uL Monocytes # (Auto) 0.9 0-1.3 10 ^3/uL Eosinophils # (Auto) 0 0-0.8 10 ^3/uL Basophils # (Auto) 0 0-0.2 10 ^3/uL Nucleated Red Blood Cells 0.0 % Sodium Level 141 # 136-145 mmol/L Potassium Level 3.4 L 3.5-5.1 mmol/L Chloride Level 109 H 98-107 mmol/L Carbon Dioxide Level 23 20-31 mmol/L Anion Gap 9 5-15 Blood Urea Nitrogen 6 L 9-23 mg/dL Creatinine 0.64 # 0.550-1.02 mg/dL Glomerular Filtration Rate Calc 120 >90 mL/min BUN/Creatinine Ratio 9.4 L 10.0-20.0 Serum Glucose 143 H 74-106 mg/dL Calcium Level 6.8 L 8.7-10.4 mg/dL Influenza Type A Antigen Negative Negative Influenza Type B Antigen Negative Negative SARS-CoV-2 Antigen (Rapid) Negative NEGATIVE Lactic Acid Level 1.8 0.4-2.0 mmol/L Test 09/13/25 13:33 09/13/25 12:24 Range/Units Beta HCG, Quantitative 0.9 L 1.5-4.2 mIU/mL Urine Color Light-orange Yellow Urine Clarity Cloudy H Clear Urine pH 6.5 5.0-9.0 Urine Specific [place] 1.022 1.001-1.035 Urine Protein 2+ H Negative Urine Ketones 2+ H Negative Urine Blood 3+ H Negative /uL Urine Nitrite Negative Negative Urine Bilirubin Negative Negative Urine Urobilinogen Normal Negative mg/dL Urine Leukocyte Esterase 3+ Negative /uL Urine RBC 14 0 - 4 /hpf Urine WBC Clumps Present None Seen /hpf Urine Microscopic WBC 385 H 0-5 /HPF Urine Squamous Epithelial Cells Few <5 /hpf Urine Bacteria Few H None Seen /hpf Urine Glucose Normal Normal mg/dL Microbiology Date/Time Source Procedure Growth Status 09/13/25 14:10 Blood Blood Culture - Preliminary NO GROWTH AFTER 24 HOURS OF INCUBATION. Resulted 09/13/25 12:24 Voided Urine Urine Culture - Preliminary Resulted Examination: GENERAL:Normal (AAOX3), HEENT:Normal, LUNGS:Normal (Nonlabored breathing with symmetric expansion), ABDOMEN:Normal (Nondistended, soft, depressible, laparoscopic scars healed, moderate suprapubic tenderness, no rebound, no guarding), :Abnormal (Right-sided CVA tenderness) Problem List/Assessment/Plan Problems: (1) UTI (urinary tract infection) (2) Pyelonephritis Assessment and Plan Mrs. Reeves is a 30 yo F who presents to the hospital with midline and right- sided suprapubic abdominal pain. I was consulted for the right lower quadrant pain. I reviewed a ultrasound of the abdomen and the appendix was not visualized. CT scan was reviewed and shows distended bladder, a lot of fecal material in the cecum with a distended cecum, I was able to partly visualize the appendix and it does not appear to be inflamed or enlarged. Patient also has hypo enhancement some portions of the right kidney, concerning for pyelonephritis. On physical exam patient was moderately tender in the suprapubic area and she had positive CVA tenderness in the right side. Labs showed a UTI with over [id number] colony-forming units on culture. I do not believe that the appendix is the issue in this patient. She does have a UTI and possible pyelonephritis of the right side. No surgical intervention at this time. Plan discussed with Plan discussed with: Patient Visit Coding Surgery Date of Service if different f: Sep 14, 2025 Billing Provider: JOSE FRANCISCO MG MD Surgery Visit Codes: [id number] - INP CONSULT <110 MIN JOSE FRANCISCO MG MD Sep 14, 2025 18:51
[2025-09-15] VITALS (7 sets, daily range): BP systolic 94–121; BP diastolic 57–91; PULSE 69–97; RESP 14–18; TEMP 98.2–100; O2SAT 94–100
[2025-09-15] MEDS: ONDANSETRON HCL 4 MG/2 ML VIAL IV PRN (03:50)
[2025-09-15] MEDS: PANTOPRAZOLE 40 MG TAB PO ONE (07:15)
[2025-09-15] MEDS: SODIUM CHLORIDE 0.9% 500 ML IV ONE (08:11)
[2025-09-15] MEDS: PIPERACILLIN-TAZOB 3.375GM 100 ML IV ONE (08:11)
[2025-09-15 08:50] LABS: Hematocrit 32.7 % (36.0-46.0); Hemoglobin 11.1 g/dL (12.2-16.2); Mean Corpuscular Hemoglobin 29.6 pg (28.0-32.0); Mean Corpuscular Volume 87.6 fL (80.0-100.0); Nucleated Red Blood Cells % 0.0 %
[2025-09-15 09:10] LABS: Chloride 103 mmol/L (98-107); Sodium 140 mmol/L (136-145)
[2025-09-15 09:11] LABS: Anion Gap 11 (5-15); Carbon Dioxide 26 mmol/L (20-31)
[2025-09-15 09:16] LABS: Glucose 96 mg/dL (74-106)
[2025-09-15 09:17] LABS: BUN/Creatinine Ratio 9.8 (10.0-20.0); Blood Urea Nitrogen < 5 mg/dL (9-23); Calcium 8.1 mg/dL (8.7-10.4); Potassium 3.2 mmol/L (3.5-5.1)
[2025-09-15] MEDS: PANTOPRAZOLE 40 MG/10 ML VIAL INJ IV ONE (11:02)
[2025-09-15] MEDS: POLYETHYLENE GLYCOL 17 GM PWDR PO ONE (11:02)
[2025-09-15] MEDS: POTASSIUM CHL 20MEQ/100ML 100 ML IV SCH (11:06)
--- NOTE | 2025-09-15 11:31 | DVHPN2 ---
Progress Note - Surgical Date Seen: Sep 15, 2025 Post op day Post op day: 0 Subjective Patient reports: No new complaints (Still having fevers, having nausea with febrile episodes, still complaining of right lower quadrant abdominal pain) Review of Systems: Deferred Objective Vital signs Vital Sign Date Time Temp Pulse Resp B/P (MAP) Pulse Ox O2 Delivery O2 Flow Rate FiO2 09/15/25 10:30 66 18 101/72 09/15/25 09:00 98.8 96 98.8 09/15/25 07:58 Room Air* 0 21 Total Intake and Output 09/14/25 09/14/25 09/15/25 15:00 23:00 07:00 Intake Total 1550 ml 1000 ml 450 ml Balance 1550 ml 1000 ml 450 ml Medications Current Medications Medications Dose Ordered Sig/Deshawn Route Start Time Stop Time Status Last Admin Dose Admin Ondansetron HCl 4 mg Q6HPRN PRN IV 09/13/25 15:15 09/15/25 03:50 4 MG Morphine Sulfate 2 mg Q6HPRN PRN IV 09/13/25 16:15 09/15/25 09:31 2 MG Acetaminophen 650 mg Q6HP PRN PO 09/13/25 16:00 09/15/25 05:27 650 MG Acetaminophen/ Hydrocodone Bitart 1 tab Q6HPRN PRN PO 09/13/25 16:00 09/15/25 03:51 1 TAB Sodium Chloride 1,000 ml @ 100 mls/hr Q10H IV 09/13/25 23:00 09/15/25 05:22 100 MLS/HR Piperacillin Sod/ Tazobactam Sod 100 ml @ 25 mls/hr Q8HR IV 09/15/25 14:00 Future hold Pantoprazole Sodium 40 mg DAILY@0600 PO 09/16/25 06:00 Potassium Chloride 100 ml @ 50 mls/hr Q2H IV 09/15/25 10:15 09/15/25 14:14 09/15/25 11:06 50 MLS/HR Laboratory Laboratory Tests 09/15/25 08:34 Test 09/15/25 08:34 Range/Units Serum Glucose 96 74-106 mg/dL Microbiology Date/Time Source Procedure Growth Status 09/13/25 14:10 Blood Blood Culture - Preliminary NO GROWTH AFTER 24 HOURS OF INCUBATION. Resulted 09/13/25 12:24 Voided Urine Urine Culture - Preliminary Resulted Examination: GENERAL:Normal (AAO x3), LUNGS:Normal (Nonlabored breathing with symmetric expansion), ABDOMEN:Normal (Nondistended, soft, depressible, mild right lower quadrant tenderness), :Normal (Right-sided CVA tenderness) Labs and/or images reviewed: Labs reviewed by me (No leukocytosis, positive UA and culture with over [id number] colony-forming units) Problem List/Assessment/Plan Assessment and Plan Mrs. Reeves is a 30 yo F who presents to the hospital with midline and right- sided suprapubic abdominal pain. I was consulted for the right lower quadrant pain. I reviewed a ultrasound of the abdomen and the appendix was not visualized. CT scan was reviewed and shows distended bladder, a lot of fecal material in the cecum with a distended cecum, I was able to partly visualize the appendix and it does not appear to be inflamed or enlarged. Patient also has hypo enhancement some portions of the right kidney, concerning for pyelonephritis. On physical exam patient was moderately tender in the suprapubic area and she had positive CVA tenderness in the right side. Labs showed a UTI with over [id number] colony-forming units on culture. I do not believe that the appendix is the issue in this patient. She does have a UTI and possible pyelonephritis of the right side. No surgical intervention at this time. Interval: Patient is still febrile, nauseous and vomiting, still complaining of right-sided lower abdominal pain. Reviewed the ultrasound of the pelvis, no abnormality seen. Patient is currently on Zosyn and pending microorganisms on culture. 1. Continue with IV antibiotics and tailor the antibiotics once microorganisms are identified on culture Plan discussed with Plan discussed with: Patient Visit Coding Surgery Date of Service if different f: Sep 15, 2025 Billing Provider: JOSE FRANCISCO MG MD Surgery Visit Codes: [id number] INP/OBS CARE(HIGH) JOSE FRANCISCO MG MD Sep 15, 2025 11:31
[2025-09-15] MEDS: PIPERACILLIN-TAZOB 3.375GM 100 ML IV SCH (15:03)
[2025-09-15] MEDS: FLORASTOR (S. BOULARDII) 250 MG CAP PO SCH (17:26)
--- NOTE | 2025-09-15 17:42 | DVHPNRES ---
Progress Note Date Seen: Sep 15, 2025 Resident Creating Document: KI VELARDE RESIDENT Medical Necessity Reason Pt with a Central, PICC or Fol: No Subjective Review of Systems Vesta Reeves is a 30-year-old female with no significant past medical history who presented to the ED with the chief complaint of right flank pain and right lower quadrant pain since 6 days. She describes the pain as dull, 8/10 in intensity, with no aggravating or relieving factors. The patient mentioned she had been having fevers up to 102 degree F associated with chills since 4 days. She also had dysuria and decreased urinary frequency. She denied any nausea vomiting constipation or diarrhea. Past medical history: Denies Past surgical history: Cholecystectomy Social & Personal history: Smokes weed occasionally, occasional alcohol consumption, consumption of edibles- CBD Allergies: No known allergies Patient seen and examined at bedside. Patient is alert and oriented to time, place person and responding to all questions. Eyes: No Pain, No Vision change, No Conjunctivae inflammation, No Eyelid inflammation, No Redness ENT: No Ear pain, No Ear discharge, No Nose pain, No Nose discharge, No Nose congestion, No Mouth pain, No Mouth swelling, No Throat pain, No Throat swelling Cardiovascular: No Chest Pain, No Palpitations, No Orthopnea, No Paroxysmal No Dyspnea, No Edema, No Lt Headedness Respiratory: No Cough, No Dry, No Shortness of breath, No SOB with exertion, No Wheezing, No Hemoptysis, No Pleuritic Pain, No Sputum Gastrointestinal: No Nausea, No Vomiting, Abdominal Pain, No Diarrhea, No Constipation, No Melena, No Hematochezia Genitourinary: No Dysuria, No Frequency, No Incontinence, No Hematuria, No Retention 09/15/25- patient was seen at bedside today. The patient still complained of pain in the right lower abdomen. She had fever spikes of 100 and 100.2 overnight, so antibiotics were changed to IV Zosyn. Her potassium was 3.2, which was replaced with 40 mEq potassium IV. We consulted surgery yesterday for the concern of acute appendicitis, surgeon evaluated her and ruled out appendicitis and recommended to continue with IV antibiotics. The patient also complained of diarrhea this morning, so she was started on Florastor 250 mg p.o. daily. She was also given 500 cc bolus of normal saline. Objective vital signs Vital Sign Date Time Temp Pulse Resp B/P (MAP) Pulse Ox O2 Delivery O2 Flow Rate FiO2 09/15/25 13:00 98.6 70 16 106/60 (75) 100 98.6 09/15/25 07:58 Room Air* 0 21 Total Intake and Output 09/14/25 09/14/25 09/15/25 15:00 23:00 07:00 Intake Total 1550 ml 1000 ml 450 ml Balance 1550 ml 1000 ml 450 ml medications Current Medications Medications Dose Ordered Sig/Deshawn Route Start Time Stop Time Status Last Admin Dose Admin Ondansetron HCl 4 mg Q6HPRN PRN IV 09/13/25 15:15 09/15/25 03:50 4 MG Morphine Sulfate 2 mg Q6HPRN PRN IV 09/13/25 16:15 09/15/25 09:31 2 MG Acetaminophen 650 mg Q6HP PRN PO 09/13/25 16:00 09/15/25 05:27 650 MG Acetaminophen/ Hydrocodone Bitart 1 tab Q6HPRN PRN PO 09/13/25 16:00 09/15/25 14:39 1 TAB Sodium Chloride 1,000 ml @ 100 mls/hr Q10H IV 09/13/25 23:00 09/15/25 05:22 100 MLS/HR Piperacillin Sod/ Tazobactam Sod 100 ml @ 25 mls/hr Q8HR IV 09/15/25 14:00 09/15/25 15:03 25 MLS/HR Pantoprazole Sodium 40 mg DAILY@0600 PO 09/16/25 06:00 Saccharomyces Boulardii 250 mg DAILY PO 09/15/25 16:00 Examination General Appearance: Cooperative. Well developed. Well nourished. NAD Head Exam: Normal inspection Neck Exam: Normal inspection. Non-tender. Normal alignment Pulmonary/Respiratory: Chest non-tender. Clear bilateral breath sounds, no crackles, no wheezing. Cardiovascular/Chest: Regular rate and rhythm. No murmurs. No JVD. Peripheral Pulses: 2+ Radial (R). 2+ Radial (L). 2+ Pedal (R). 2+ Pedal (L) Abdominal Exam: Normal bowel sounds. Soft. Tenderness in right lower quadrant, right flank and CVA nontender, No hepatospenomegaly. No masses Ankle Exam: Negative ankle edema Lower extremities: Negative lower extremity edema Neuro/Mental Status: A&O x4. Coherent. Thoughts/Psych: Normal thought pattern. Appropriate mood and affect. Good judgement and insight Skin Exam: Normal inspection. Normal color. Warm. Dry laboratory and microbiology Laboratory Tests 09/15/25 08:34 Test 09/15/25 08:34 Range/Units Serum Glucose 96 74-106 mg/dL Microbiology Date/Time Source Procedure Growth Status 09/13/25 14:10 Blood Blood Culture - Preliminary NO GROWTH AFTER 48 HOURS OF INCUBATION. Resulted 09/13/25 12:24 Voided Urine Urine Culture - Final Complete Labs and/or images reviewed: Labs reviewed by me, Image(s) reviewed by me Problem List/Assessment/Plan Problem List/Assessment/Plan # Sepsis, likely due to acute pyelonephritis # Acute pyelonephritis # Intractable abdominal pain, likely due to above # Ruled out appendicitis # Ruled out ectopic - UA positive for UTI - blood culture-no growth after 24 hours - urine culture prelim- >100,000 CFU - IV Zosyn - NS at 100 mL/hours - right lower quadrant ultrasound - appendix not visualized, small amount of free fluid in pelvis - pelvic ultrasound- mild free fluid, likely physiologic - surgery on board-no intervention needed, appendicitis ruled out # Gastroduodenitis - Protonix 40 mg daily IV - Zofran q.4 PRN # Hypokalemia - repleted # Acute Diarrhea, likely viral - florastor 250mg po daily Goals of care discussed with the patient for > 20 minutes, full code Plan discussed with Dr. Coughlin Plan discussed with: Patient, Other My Orders My Orders Orders - KI VELARDE RESIDENT Procedure Category Date Status Time Transvaginal Us Non Ob US 09/14/25 Taken Florastor (S. PHA 09/15/25 In Process Boulardii) (Florastor) 16:00 Dietary Evaluation Review Comments: Monitor PO intake, lab values, weight trend, and I/O Expected Outcomes/Goals: Intake to meet >75% estimated needs Lab values to improve FU 3-5 days Sepsis reassessment post fluid Is the fluid challenge complet: Yes Date of Reassessment: Sep 13, 2025 Time of Reassessment: 1918 Blood Culture Time: 1420 Time Antibiotics Given: 1651 Systolic BP: 104 Diastolic BP: 55 Blood Pressure Mean: 71 Respiration: 20 Respiratory Effort: Non-Labored Respiratory Pattern: Regular Oxygen Saturation: 99 Pulse Rate: 112 Pulse Location: Radial Pulse Strength: Normal Pulse Assessment Method: Doppler Pulse Rhythm: Regular Capillary Refill: < 3 seconds Heart Sounds: S1 & S2 Breath sounds: Clear Skin Moisture: Dry Skin Tugor: WNL Skin Color: WNL Visit Coding STANDARD RES Billing Provider: TORIE COUGHLIN MD Date of Service if different f: Sep 15, 2025 Common Visit Codes: [id number] INP/OBS CARE(HIGH) KI VELARDE RESIDENT Sep 15, 2025 17:42
[2025-09-16 00:38] VITALS: BP 91/54; PULSE 63; RESP 15; TEMP 98.5; O2SAT 97
[2025-09-16 05:00] VITALS: BP 105/78; PULSE 82; RESP 17; TEMP 98.3; O2SAT 96
[2025-09-16] MEDS: PANTOPRAZOLE 40 MG TAB PO SCH (05:02)
[2025-09-16 06:18] LABS: Anion Gap 10 (5-15); Carbon Dioxide 27 mmol/L (20-31); Chloride 102 mmol/L (98-107); Sodium 139 mmol/L (136-145)
[2025-09-16 06:21] LABS: Calcium 8.2 mg/dL (8.7-10.4); Potassium 3.4 mmol/L (3.5-5.1)
[2025-09-16 06:26] LABS: Hematocrit 31.9 % (36.0-46.0); Hemoglobin 10.7 g/dL (12.2-16.2); Mean Corpuscular Hemoglobin 29.3 pg (28.0-32.0); Mean Corpuscular Volume 87.1 fL (80.0-100.0); Nucleated Red Blood Cells % 0.1 %
[2025-09-16 06:31] LABS: BUN/Creatinine Ratio 8.1 (10.0-20.0); Blood Urea Nitrogen < 5 mg/dL (9-23); Glucose 106 mg/dL (74-106)
[2025-09-16] MEDS: POTASSIUM EFFERVESENT TAB 25 MEQ PO ONE (06:50)
[2025-09-16 09:00] VITALS: BP 106/71; PULSE 69; RESP 18; TEMP 98.5; O2SAT 96
[2025-09-16 16:40] VITALS: BP_SYST 112; BP_SYST 130; BP_DIAS 67; BP_DIAS 72; PULSE 67; RESP 18; TEMP 98.4; O2SAT 90
--- NOTE | 2025-09-16 17:42 | DVHPNRES ---
Progress Note Date Seen: Sep 16, 2025 Resident Creating Document: KI VELARDE RESIDENT Medical Necessity Reason Pt with a Central, PICC or Fol: No Subjective Review of Systems Vesta Reeves is a 30-year-old female with no significant past medical history who presented to the ED with the chief complaint of right flank pain and right lower quadrant pain since 6 days. She describes the pain as dull, 8/10 in intensity, with no aggravating or relieving factors. The patient mentioned she had been having fevers up to 102 degree F associated with chills since 4 days. She also had dysuria and decreased urinary frequency. She denied any nausea vomiting constipation or diarrhea. Past medical history: Denies Past surgical history: Cholecystectomy Social & Personal history: Smokes weed occasionally, occasional alcohol consumption, consumption of edibles- CBD Allergies: No known allergies Patient seen and examined at bedside. Patient is alert and oriented to time, place person and responding to all questions. Eyes: No Pain, No Vision change, No Conjunctivae inflammation, No Eyelid inflammation, No Redness ENT: No Ear pain, No Ear discharge, No Nose pain, No Nose discharge, No Nose congestion, No Mouth pain, No Mouth swelling, No Throat pain, No Throat swelling Cardiovascular: No Chest Pain, No Palpitations, No Orthopnea, No Paroxysmal No Dyspnea, No Edema, No Lt Headedness Respiratory: No Cough, No Dry, No Shortness of breath, No SOB with exertion, No Wheezing, No Hemoptysis, No Pleuritic Pain, No Sputum Gastrointestinal: No Nausea, No Vomiting, Abdominal Pain, No Diarrhea, No Constipation, No Melena, No Hematochezia Genitourinary: No Dysuria, No Frequency, No Incontinence, No Hematuria, No Retention 09/15/25- patient was seen at bedside today. The patient still complained of pain in the right lower abdomen. She had fever spikes of 100 and 100.2 overnight, so antibiotics were changed to IV Zosyn. Her potassium was 3.2, which was replaced with 40 mEq potassium IV. We consulted surgery yesterday for the concern of acute appendicitis, surgeon evaluated her and ruled out appendicitis and recommended to continue with IV antibiotics. The patient also complained of diarrhea this morning, so she was started on Florastor 250 mg p.o. daily. She was also given 500 cc bolus of normal saline. 09/16/25- the patient was seen at bedside today. She states her pain has reduced considerably. She has mild nausea now, but has had no vomiting since yesterday and is able to keep some liquids and food down. Her potassium was 3.4, which was replenished. She has had no fevers overnight. Objective vital signs Vital Sign Date Time Temp Pulse Resp B/P (MAP) Pulse Ox O2 Delivery O2 Flow Rate FiO2 09/16/25 16:40 98.4 67 18 112/67 (82) 90 98.4 09/16/25 07:58 Room Air* 0 21 Total Intake and Output 09/15/25 09/15/25 09/16/25 15:00 23:00 07:00 Intake Total 700 ml 1800 ml 750 ml Balance 700 ml 1800 ml 750 ml medications Current Medications Medications Dose Ordered Sig/Deshawn Route Start Time Stop Time Status Last Admin Dose Admin Ondansetron HCl 4 mg Q6HPRN PRN IV 09/13/25 15:15 09/15/25 21:49 4 MG Morphine Sulfate 2 mg Q6HPRN PRN IV 09/13/25 16:15 09/16/25 13:52 2 MG Acetaminophen 650 mg Q6HP PRN PO 09/13/25 16:00 09/16/25 12:32 650 MG Acetaminophen/ Hydrocodone Bitart 1 tab Q6HPRN PRN PO 09/13/25 16:00 09/15/25 21:30 1 TAB Sodium Chloride 1,000 ml @ 100 mls/hr Q10H IV 09/13/25 23:00 09/16/25 02:24 100 MLS/HR Piperacillin Sod/ Tazobactam Sod 100 ml @ 25 mls/hr Q8HR IV 09/15/25 14:00 09/16/25 13:51 25 MLS/HR Pantoprazole Sodium 40 mg DAILY@0600 PO 09/16/25 06:00 09/16/25 05:02 40 MG Saccharomyces Boulardii 250 mg DAILY PO 09/15/25 16:00 09/16/25 09:23 250 MG Examination General Appearance: Cooperative. Well developed. Well nourished. NAD Head Exam: Normal inspection Neck Exam: Normal inspection. Non-tender. Normal alignment Pulmonary/Respiratory: Chest non-tender. Clear bilateral breath sounds, no crackles, no wheezing. Cardiovascular/Chest: Regular rate and rhythm. No murmurs. No JVD. Peripheral Pulses: 2+ Radial (R). 2+ Radial (L). 2+ Pedal (R). 2+ Pedal (L) Abdominal Exam: Normal bowel sounds. Soft. Tenderness in right lower quadrant, right flank and CVA nontender, No hepatospenomegaly. No masses Ankle Exam: Negative ankle edema Lower extremities: Negative lower extremity edema Neuro/Mental Status: A&O x4. Coherent. Thoughts/Psych: Normal thought pattern. Appropriate mood and affect. Good judgement and insight Skin Exam: Normal inspection. Normal color. Warm. Dry laboratory and microbiology Laboratory Tests 09/16/25 05:32 Test 09/16/25 05:32 Range/Units Serum Glucose 106 74-106 mg/dL Microbiology Date/Time Source Procedure Growth Status 09/13/25 14:10 Blood Blood Culture - Preliminary NO GROWTH AFTER 72 HOURS OF INCUBATION. Resulted 09/13/25 12:24 Voided Urine Urine Culture - Final Complete Labs and/or images reviewed: Labs reviewed by me, Image(s) reviewed by me Problem List/Assessment/Plan Problem List/Assessment/Plan # Sepsis, likely due to acute pyelonephritis # Acute pyelonephritis # Intractable abdominal pain, likely due to above # Ruled out appendicitis # Ruled out ectopic - UA positive for UTI - blood culture-no growth after 72 hours - urine culture - >100,000 CFU - IV Zosyn - NS at 100 mL/hours - right lower quadrant ultrasound - appendix not visualized, small amount of free fluid in pelvis - pelvic ultrasound- mild free fluid, likely physiologic - surgery on board-no intervention needed, appendicitis ruled out # Gastroduodenitis - Protonix 40 mg daily IV - Zofran q.4 PRN # Hypokalemia - repleted # Acute Diarrhea, likely viral - florastor 250mg po daily Goals of care discussed with the patient for > 20 minutes, full code Plan discussed with Dr. Coughlin Plan discussed with: Patient, Spouse, Other Dietary Evaluation Review Comments: Monitor PO intake, lab values, weight trend, and I/O Expected Outcomes/Goals: Intake to meet >75% estimated needs Lab values to improve FU 3-5 days Sepsis reassessment post fluid Is the fluid challenge complet: Yes Date of Reassessment: Sep 13, 2025 Time of Reassessment: 1918 Blood Culture Time: 1420 Time Antibiotics Given: 1651 Systolic BP: 104 Diastolic BP: 55 Blood Pressure Mean: 71 Respiration: 20 Respiratory Effort: Non-Labored Respiratory Pattern: Regular Oxygen Saturation: 99 Pulse Rate: 112 Pulse Location: Radial Pulse Strength: Normal Pulse Assessment Method: Doppler Pulse Rhythm: Regular Capillary Refill: < 3 seconds Heart Sounds: S1 & S2 Breath sounds: Clear Skin Moisture: Dry Skin Tugor: WNL Skin Color: WNL Visit Coding STANDARD RES Billing Provider: TORIE COUGHLIN MD Date of Service if different f: Sep 16, 2025 Common Visit Codes: [id number] INP/OBS CARE(HIGH) KI VELARDE RESIDENT Sep 16, 2025 17:42
[2025-09-16 21:00] VITALS: BP_SYST 106; BP_SYST 138; BP_DIAS 76; BP_DIAS 80; PULSE 85; PULSE 87; RESP 12; TEMP 98.1; TEMP 98.6; O2SAT 97; O2SAT 99
[2025-09-17 05:00] VITALS: BP 100/61; PULSE 67; RESP 12; TEMP 98; O2SAT 97
[2025-09-17] MEDS: MELATONIN 5 MG TAB PO ONE (05:14)
[2025-09-17 06:14] LABS: Chloride 106 mmol/L (98-107); Hematocrit 27.7 % (36.0-46.0); Hemoglobin 9.3 g/dL (12.2-16.2); Mean Corpuscular Hemoglobin 29.3 pg (28.0-32.0); Mean Corpuscular Volume 87.3 fL (80.0-100.0); Nucleated Red Blood Cells % 0.1 %; Sodium 143 mmol/L (136-145)
[2025-09-17 06:15] LABS: Anion Gap 11 (5-15); Carbon Dioxide 26 mmol/L (20-31)
[2025-09-17 06:21] LABS: Glucose 89 mg/dL (74-106)
[2025-09-17 06:32] LABS: BUN/Creatinine Ratio 8.1 (10.0-20.0); Blood Urea Nitrogen < 5 mg/dL (9-23); Calcium 8.0 mg/dL (8.7-10.4); Potassium 3.3 mmol/L (3.5-5.1)
[2025-09-17 08:49] VITALS: BP 133/89; PULSE 77; RESP 18; TEMP 97.8; O2SAT 98
[2025-09-17] MEDS: POTASSIUM EFFERVESENT TAB 25 MEQ PO ONE (10:06)
[2025-09-17] MEDS ORDERED: LEVO500T91 PO (12:28)
[2025-09-17 13:00] VITALS: BP 106/68; PULSE 76; RESP 18; TEMP 98.2; O2SAT 95
[2025-09-17 13:33] VITALS: TEMP 36.8
--- NOTE | 2025-09-17 18:03 | DVHDSRES ---
Discharge Summary Date of Admission Resident Creating Document: KI VELARDE RESIDENT Sep 13, 2025 at 15:01 Date of Discharge: Sep 17, 2025 Admitting Diagnosis Sepsis due to UTI Labs/Diagnostic Data: Laboratory Results Test 09/17/25 05:17 09/15/25 08:34 09/14/25 09:35 09/13/25 16:34 White Blood Count 5.4 10^3/uL (4.4-10.8) Red Blood Count 3.17 10^6/uL (4.0-5.20) Hemoglobin 9.3 g/dL (12.2-16.2) Hematocrit 27.7 % (36.0-46.0) Mean Corpuscular Volume 87.3 fL (80.0-100.0) Mean Corpuscular Hemoglobin 29.3 pg (28.0-32.0) Mean Corpuscular Hemoglobin Concent 33.6 g/dL (32.0-36.0) Red Cell Distribution Width 13.8 % (11.8-14.3) Platelet Count 182 10^3/uL (140-450) Mean Platelet Volume 8.0 fL (6.9-10.8) Neutrophils (%) (Auto) 50.8 % (37.0-80.0) Lymphocytes (%) (Auto) 30.5 % (10.0-50.0) Monocytes (%) (Auto) 17.4 % (0.0-12.0) Eosinophils (%) (Auto) 0.6 % (0.0-7.0) Basophils (%) (Auto) 0.7 % (0.0-2.0) Neutrophils # (Auto) 2.8 10 ^3/uL (1.6-8.6) Lymphocytes # (Auto) 1.7 10 ^3/uL (0.4-5.4) Monocytes # (Auto) 0.9 10 ^3/uL (0-1.3) Eosinophils # (Auto) 0 10 ^3/uL (0-0.8) Basophils # (Auto) 0 10 ^3/uL (0-0.2) Nucleated Red Blood Cells 0.1 % Sodium Level 143 mmol/L (136-145) Potassium Level 3.3 mmol/L (3.5-5.1) Chloride Level 106 mmol/L (98-107) Carbon Dioxide Level 26 mmol/L (20-31) Anion Gap 11 (5-15) Blood Urea Nitrogen < 5 mg/dL (9-23) Creatinine 0.62 mg/dL (0.550-1.02) Glomerular Filtration Rate Calc 121 mL/min (>90) BUN/Creatinine Ratio 8.1 (10.0-20.0) Serum Glucose 89 mg/dL (74-106) Calcium Level 8.0 mg/dL (8.7-10.4) Magnesium Level 2.0 mg/dL (1.6-2.6) Total Bilirubin 0.4 mg/dL (0.2-1.0) Direct Bilirubin 0.2 mg/dL (<0.3) Aspartate Amino Transferase (AST) 25 U/L (13-40) Alanine Aminotransferase (ALT) 22 U/L (7-40) Alkaline Phosphatase 45 U/L (46-116) Total Protein 5.4 g/dL (5.7-8.2) Albumin 3.0 g/dL (3.2-4.8) Influenza Type A Antigen Negative (Negative) Influenza Type B Antigen Negative (Negative) SARS-CoV-2 Antigen (Rapid) Negative (NEGATIVE) Test 09/13/25 14:05 09/13/25 13:33 09/13/25 12:24 Lactic Acid Level 1.8 mmol/L (0.4-2.0) Beta HCG, Quantitative 0.9 mIU/mL (1.5-4.2) Urine Color Light-orange (Yellow) Urine Clarity Cloudy (Clear) Urine pH 6.5 (5.0-9.0) Urine Specific [place] 1.022 (1.001-1.035) Urine Protein 2+ (Negative) Urine Ketones 2+ (Negative) Urine Blood 3+ /uL (Negative) Urine Nitrite Negative (Negative) Urine Bilirubin Negative (Negative) Urine Urobilinogen Normal mg/dL (Negative) Urine Leukocyte Esterase 3+ /uL (Negative) Urine RBC 14 /hpf (0 - 4) Urine WBC Clumps Present /hpf (None Seen) Urine Microscopic WBC 385 /HPF (0-5) Urine Squamous Epithelial Cells Few /hpf (<5) Urine Bacteria Few /hpf (None Seen) Urine Glucose Normal mg/dL (Normal) Other Laboratory Tests 09/17/25 05:17 Brief Hx & Hospital Course: Vesta Reeves is a 30-year-old female with no significant past medical history who presented to the ED with the chief complaint of right flank pain and right lower quadrant pain since 6 days. She describes the pain as dull, 8/10 in intensity, with no aggravating or relieving factors. The patient mentioned she had been having fevers up to 102 degree F associated with chills since 4 days. She also had dysuria and decreased urinary frequency. She denied any nausea vomiting constipation or diarrhea. Hospital course: The patient underwent CT abdomen/pelvis which showed right-sided pyelonephritis and gastroduodenitis. She was started on IV antibiotics. She developed few fever spikes on 09/14/2025, so antibiotics were changed to IV Zosyn. Her electrolytes were monitored and replenished as required. Ultrasound to rule out acute appendicitis was performed, which was unremarkable. Surgery evaluated the patient and ruled out appendicitis and recommended to continue with IV antibiotics. Pelvic Ultrasound showed mild free fluid, physiological. Patient also complained of mild diarrhea for which he was given Florastor 250 mg p.o. daily. Her pain reduced considerably and her labs came back to normal range. She was discharged home in a stable condition on oral antibiotics for 7 days. All medications and recommendations were thoroughly explained to the patient and she demonstrated understanding of the same. She was recommended to follow up in discharge Clinic on Sunday a.m. and with PCP. Past medical history: Denies Past surgical history: Cholecystectomy Social & Personal history: Smokes weed occasionally, occasional alcohol consumption, consumption of edibles- CBD Allergies: No known allergies Physical examination on the day of discharge: General Appearance: Cooperative. Well developed. Well nourished. NAD Head Exam: Normal inspection Neck Exam: Normal inspection. Non-tender. Normal alignment Pulmonary/Respiratory: Chest non-tender. Clear bilateral breath sounds, no crackles, no wheezing. Cardiovascular/Chest: Regular rate and rhythm. No murmurs. No JVD. Peripheral Pulses: 2+ Radial (R). 2+ Radial (L). 2+ Pedal (R). 2+ Pedal (L) Abdominal Exam: Normal bowel sounds. Soft. No tenderness, No hepatospenomegaly. No masses Ankle Exam: Negative ankle edema Lower extremities: Negative lower extremity edema Neuro/Mental Status: A&O x4. Coherent. Thoughts/Psych: Normal thought pattern. Appropriate mood and affect. Good judgement and insight Skin Exam: Normal inspection. Normal color. Warm. Dry Operations or Procedures 1.PROCEDURE(s): CXR1 - CHEST XRAY 1 VIEW REASON: SOB ORDER NUMBER(s): [id number], ACCESSION NUMBER(s): [id number] CHEST RADIOGRAPH Indication: SOB Technique: Single frontal view of the chest was obtained Comparison: None FINDINGS: Lines and Tubes: None Lungs: No focal consolidation. Pleura: No effusion. No pneumothorax. Cardiomediastinal contours: Unremarkable Bones: No acute osseous abnormality. IMPRESSION: 1. No acute cardiopulmonary disease. 2.PROCEDURE(s): ABPLIV - CT AB PEL WITH IV CON ONLY REASON: R CVA tenderness, R flank pain, sepsis, UTI ORDER NUMBER(s): [id number], ACCESSION NUMBER(s): [id number] Exam: CT CT AB PEL WITH IV CON ONLY History: R CVA tenderness, R flank pain, sepsis, UTI Comparison Study: None TECHNIQUE: Multidetector CT of the abdomen and pelvis with IV contrast. Axial, coronal and sagittal multiplanar reformats were obtained from the axial data set by the technologist. Radiation Dose Information: CT Dose: CTDI volume is 6.1 mGy. Dose-length product is 3.62 mGy*cm FINDINGS: Bases are clear. Partially visualized heart is unremarkable. Status post cholecystectomy. Mild splenomegaly. Otherwise, liver, spleen, pancreas and adrenal glands unremarkable. Status post cholecystectomy. Minimal intrahepatic biliary ductal dilatation. Areas of hypoenhancement of the right kidney with moderate right-sided perinephric fat stranding. Otherwise, kidneys, and ureters unremarkable. Mild distention of the urinary bladder which is otherwise unremarkable. Uterus is unremarkable. Small amount of free fluid within the cul-de-sac. Mild wall thickening of the stomach and proximal duodenum with distention of the proximal duodenum up to 2.7 cm. The remainder of the small bowel loops unremarkable. The distal small bowel loops are stool-filled and nondistended. Appendix is not completely visualized with a visualized appendix unremarkable. Without visualization of the Appendix, can not exclude acute appendicitis. Liquid stool within the cecum and ascending colon. Under of the large bowel is unremarkable. No evidence of intraperitoneal free air. No evidence of aortic aneurysm or dissection. No significant lymphadenopathy. Soft tissues are unremarkable. Acute osseous abnormalities. IMPRESSION: Areas of hypoenhancement of the right kidney with moderate right-sided perinephric fat stranding. Correlate for pyelonephritis. Possible nonobstructing right renal calculus. Small amount of free fluid within the pelvis. Gastro duodenitis. 3.PROCEDURE(s): RTLQD - RIGHT LOWER QUAD REASON: suspected appendicitis ORDER NUMBER(s): [id number], ACCESSION NUMBER(s): [id number] INDICATION: suspected appendicitis, pain TECHNIQUE: Multiple real-time sonographic images were obtained of the right lower quadrant. COMPARISON: US GALLBLADDER on DOS: 09/12/24 FINDINGS: The appendix is not visualized. There is mild free fluid in the pelvis, superior to the urinary bladder. IMPRESSION: The appendix is not visualized Mild free fluid in the pelvis, superior to the urinary bladder 4.PROCEDURE(s): PELUS - PELVIC REASON: pelvic pain right side ORDER NUMBER(s): [id number], ACCESSION NUMBER(s): [id number] INDICATION: pelvic pain right side TECHNIQUE: Multiple real-time grayscale transabdominal sonographic images along with color and duplex Doppler of the uterus and ovaries were obtained. COMPARISON: None FINDINGS: The uterus measures 8.9 x 4.1 x 5.6 cm. The endometrial stripe measures by 1.7 mm. Mild free fluid in the cul-de-sac. There are tiny subcentimeter nabothian cysts in the cervix. Right ovary measures 2.6 x 1.6 x 2.2 cm with normal Doppler color flow Left ovary measures 2.3 x 1.5 x 2.5 cm with normal Doppler color flow Bilateral simple ovarian cysts versus follicles measuring up to 1.3 cm on the right and 1 cm on the left No adnexal masses. IMPRESSION: No acute sonographic abnormality of the pelvis Mild free fluid, likely physiologic Condition at Discharge: Fair Final Diagnosis/Problems List Sepsis, likely due to acute pyelonephritis Acute pyelonephritis, right side Intractable abdominal pain, likely due to above Ruled out appendicitis Ruled out ectopic Gastroduodenitis Hypokalemia Acute Diarrhea, likely viral Discharge Disposition: Home Discharge Instruct/Medications Diet: Regular Activity: No Restrictions, As Tolerated Follow Up/Referral: follow up in dc clinic on Sunday Medications: as per EMR Scheduled Levofloxacin Hemihydrate (Levofloxacin), 500 MG PO DAILY Discharge Statement: "Patient was advised to return to the ER or call 911 if any headaches, dizziness, shortness of breath, chest pain, abdominal pain, bleeding, fevers, or worsening of medical condition. Patient was counseled about treatment plan, medications, possible side effects, patientverbalized understanding. All questions were answered to the best of my ability. This discharge took greater then 30 minutes in planning, reviewing documentation, counseling the patient, and discussing with other team members." ASSESSMENT ASSESSMENT Assessment sepsis due to pyelonephritis Visit Coding STANDARD RES Billing Provider: TORIE COUGHLIN MD Date of Service if different f: Sep 17, 2025 Common Visit Codes: 37581-RMJ/OBS DISCH DAY >30min KI VELARDE RESIDENT Sep 17, 2025 18:03
== END 2025-09-17 13:45 | disposition home or self-care (01) | DRG 720 ==
LOC: ER 11:39 → OVERFLOW 15:01 → EAST 21:27
PROVIDERS: ADMIT Student in an Organized Health Care Education/Training Program; ATTEND Student in an Organized Health Care Education/Training Program
DX: A41.9 Sepsis, unspecified organism (principal); K29.90 Gastroduodenitis, unspecified, without bleeding; N10 Acute pyelonephritis; E87.6 Hypokalemia; Z20.822 Contact with and (suspected) exposure to COVID-19; A08.4 Viral intestinal infection, unspecified; Z90.49 Acquired absence of other specified parts of digestive tract
CPT/HCPCS: 36415; 71045; 74177; 76705; 76830; 76856; 80048; 80076; 81001; 83605; 83735; 84702; 85025; 87040; 87086; 87426; 87804; 96365; 96375; 99291; 99292; G0378; J2405; J2470; J2543; J3480; J3490